=== PATIENT | female | born 1955 ===

== ENCOUNTER 2020-12-09 09:16 | Inpatient (IN) | payer OTHER ==
[2020-12-09] MEDS ORDERED: Aspirin Chewable 81 MG TAB ONE (09:27)
[2020-12-09] MEDS ORDERED: Enoxaparin Sodium 60 MG/0.6 ML SYRINGE ONE (09:27)
[2020-12-09] MEDS ORDERED: Aspirin 300 MG Suppository ONE (09:27)
[2020-12-09 09:42] LABS: Bilirubin Negative (Negative); Blood, Urine Negative (Negative); Clarity Clear (Clear); Glucose, Urine (Dipstick) Normal (Negative); Ketone, Urine Negative (Negative); Leukocyte Negative Leu/uL (Negative); Nitrite Negative (Negative); Protein, Urine (Dipstick) 20 mg/dL (Neg-Trace); Urobilinogen Normal mg/dL (Less than 2)
[2020-12-09 09:49] LABS: Medtox Reader # READER 4
[2020-12-09 09:50] LABS: Amphetamine Not Detected (NotDetected); Barbiturates Screen Not Detected (NotDetected); Benzodiazepine Screen Not Detected (NotDetected); Cocaine Metabolite Screen Not Detected (NotDetected); Medtox Control Line Valid? VALID (VALID); Methadone Not Detected (NotDetected); Methamphetamine Not Detected (NotDetected); Opiate Screen Not Detected (NotDetected); Oxycodone Screen Not Detected (NotDetected); Phencyclidine (PCP) Not Detected (NotDetected); THC/Cannabinoid Screen Not Detected (NotDetected); Tricyclic Screen Not Detected (NotDetected)
[2020-12-09 09:52] LABS: #Lymphocytes 0.4 thou/uL (1.20-3.40); #Monocytes 0.1 thou/uL (0.11-0.59); #Neutrophils 2.3 thou/uL (1.40-6.50); %Eosinophils 0.2 % (0.0-10.0); %Lymphocytes 15.4 % (21.0-51.0); %Monocytes 3.7 % (0.0-10.0); %Neutrophils 80.7 % (42.0-75.0); Hemoglobin 8.2 g/dL (12.0-16.0); Mean Corpuscular HGB CONC 34.7 g/dL (32.0-36.0); Mean Corpuscular Hemoglobin 32.5 pg (27.0-31.0); Mean Corpuscular Volume 93.4 fL (78.0-98.0); Mean Platelet Volume 6.7 fL (7.4-10.4); Platelet Count 135 thou/uL (130-400); RBC Distribution Width 12.2 % (11.5-14.5); Red Blood Cell (RBC) Count 2.52 mill/uL (4.20-5.40); White Blood Cell (WBC) Count 2.9 thou/uL (4.8-10.8)
--- NOTE | 2020-12-09 09:52 | RAD ---
PORTABLE CHEST 1 VIEW: Date: 12/09/2020 Time: 0935 hours HISTORY: Dyspnea. Lethargic. COVID-positive. FINDINGS/IMPRESSION: The heart size is borderline. The lungs are well expanded with patchy opacities in the peripheral karen g schwab bilaterally. No pneumothoraces or pleural effusions are seen. Findings are suspicious for pn eumonia. POS: MZA
[2020-12-09 09:54] LABS: Actual Bicarbonate (HCO3a) 22.8 mEq/L (22-28); Base Excess (BEa) -0.1 mEq/L (-2.0 to +3.0); CO2 Tension 32.2 mmHg (35.0-45.0); Calcium, Ionized (arterial) 1.12 mmol/L (1.12-1.30); Carboxyhemoglobin (COHb) 0.7 gm% (0.0-3.0); Hemoglobin (Hb) 14.4 g/dL (12.0-16.0); O2 Tension (PaO2), arterial 44.7 mmHg (> 80.0); Potassium - ABG Lab 2.62 mmol/L (3.70-5.30); pH, Arterial 7.47 (7.35-7.45)
[2020-12-09 09:55] LABS: Puncture Site RRA
[2020-12-09 10:11] LABS: Calc. Creatinine Clearance 0 mL/min (70-130)
[2020-12-09] MEDS ORDERED: cefTRIAXone\\ROCEPHIN 2 GM VIAL ONE (10:19)
[2020-12-09] MEDS ORDERED: Iopamidol-370 76% 500 ML 1 ML ONE (10:33)
--- NOTE | 2020-12-09 10:49 | CT ---
CT BRAIN WITHOUT CONTRAST: Date: HISTORY: COVID-19 positive. Altered mental status. COMPARISON: None. FINDINGS: There are changes of cortical atrophy and chronic small vessel ischemic disease. The ventricular size is appropriate and the basilar cisterns are patent. No evidence of acute infarct, hemorrhage, midline shift, or abnormal extra-axial fluid collections ar e seen. The visualized paranasal sinuses and mastoid air cells are well aerated. IMPRESSION: No CT evidence of acute intracranial process. POS: MZA
[2020-12-09 10:51] LABS: Calcium 7.9 mg/dL (7.8-10.44); Potassium 3.2 mmol/L (3.5-5.1)
--- NOTE | 2020-12-09 10:52 | CT ---
CT PULMONARY ANGIOGRAM WITH IV CONTRAST AND 3D POSTPROCESSING: Date: 12/09/2020 HISTORY: COVID-positive. Altered mental status. FINDINGS: There is good contrast opacification of the pulmonary arterial vasculature without filling defects to suggest pulmonary embolism. There are vascular calcifications without evidence of aneurysmal dilatat ion of the thoracic aorta. No pleural or pericardial effusions are seen. There is pneumomediastinum a nd pneumopericardium. There are extensive patchy ground-glass opacities in the lung schwab bilaterall y. Upper abdominal tomograms demonstrate no evidence of calcified gallstones. There are degenerative changes in the spine. No definite pneumothoraces are seen. IMPRESSION: 1. No CT evidence of pulmonary embolism. 2. Bilateral COVID-19 pneumonia. 3. Pneumomediastinum and pneumopericardium. Discussed over the telephone with ER physician, Dr. Mati Moreno, at 1017 hours. CODE CR. POS: MZA
[2020-12-09 10:59] LABS: Alcohol Less than 10 mg/dL (Less than 10); Salicylate Less than 8.0 mg/dL (15.0-30.0)
[2020-12-09] MEDS ORDERED: Azithromycin 500 MG VIAL ONE (11:07)
[2020-12-09] MEDS ORDERED: Dexamethasone 4 mg/ml Vial ONE (11:07)
[2020-12-09 11:14] LABS: CKMB 10.2 ng/mL (0-6.6)
[2020-12-09 11:18] LABS: Chloride 93 mmol/L (98-107); Sodium 127 mmol/L (136-145)
[2020-12-09 11:19] LABS: Carbon Dioxide 20 mmol/L (23-31)
[2020-12-09 11:20] LABS: Anion Gap 17 mmol/L (10-20)
[2020-12-09 11:21] LABS: Glucose 94 mg/dL (80-115)
[2020-12-09 11:22] LABS: Bilirubin, Total 0.5 mg/dL (0.2-1.2); Protein, Total 6.1 g/dL (5.8-8.1)
[2020-12-09 11:25] LABS: Globulin 3.1 g/dL (2.4-3.5)
[2020-12-09 11:26] LABS: Alkaline Phosphatase 82 U/L (40-110)
[2020-12-09 11:27] LABS: ALT (SGPT) 57 U/L (8-55); CK (CPK) 680 U/L (29-168); Lipase 50 U/L (8-78)
[2020-12-09 11:28] LABS: AST (SGOT) 100 U/L (5-34)
[2020-12-09] MEDS ORDERED: Potassium Chloride 20 MEQ TAB ONE (11:28)
[2020-12-09 11:29] LABS: BUN (Urea Nitrogen) 40 mg/dL (9.8-20.1)
[2020-12-09 11:41] LABS: SARS-CoV-2 NAA Rapid Test DETECTED (NotDetected)
[2020-12-09] MEDS ORDERED: Rocuronium Bromide 10 MG/ML (10ML VIAL) ONE (12:02)
[2020-12-09] MEDS ORDERED: Dexamethasone 10 MG/ML VIAL SLOW IVP SCH (12:30)
[2020-12-09] MEDS ORDERED: Fentanyl CADD 100 ML IV SCH ×2 (12:45→14:00)
[2020-12-09] MEDS ORDERED: Ventilator Sedation Protocol 1 EACH FS SCH (13:00)
[2020-12-09 13:20] LABS: Lactic Acid 1.5 mmol/L (0.5-2.2)
--- NOTE | 2020-12-09 13:34 | RAD ---
PORTABLE CHEST ONE VIEW: 12/09/20 at 12:35 p.m. HISTORY: Respiratory failure post central line placement. FINDINGS/IMPRESSION: Comparison made with the exam of 9:35 a.m. from same date. There has been interval placement of an endotracheal tube with hip in the right main bronchus. There is a nasogastric tube that can be traced into the stomach with tip exclusion from film. There is a le ft subclavian central venous catheter with tip in the projection of the cavoatrial junction. No pneu mothoraces are seen. the heart size is stable. Extensive bilateral infiltrates are seen. Discussed over the telephone with ER physician, Dr. Mati Moreno at 1:07 p.m. POS: KENDALL
[2020-12-09] MEDS ORDERED: Fentanyl BOLUS 250 ML IVPB PRN (14:00)
[2020-12-09] MEDS ORDERED: DISCONTINUE PREVIOUS NARCOTIC PAIN MEDICATIONS AND BENZODIAZEPINES FS SCH (14:00)
[2020-12-09] MEDS ORDERED: Propofol BOLUS 1,000 MG/100 ML VIAL IV PRN (14:00)
[2020-12-09] MEDS: Pantoprazole 40 MG VIAL IVP SCH ×2 (14:43→22:00)
[2020-12-09] MEDS ORDERED: Pantoprazole 40 MG VIAL ONE (14:44)
[2020-12-09] MEDS ORDERED: Albumin 25% 25 GM/100 ML BOT IVPB SCH (15:42)
[2020-12-09 15:44] LABS: Actual Bicarbonate (HCO3a) 24.5 mEq/L (22-28); Base Excess (BEa) -2.4 mEq/L (-2.0 to +3.0); CO2 Tension 50.4 mmHg (35.0-45.0); Calcium, Ionized (arterial) 1.09 mmol/L (1.12-1.30); Carboxyhemoglobin (COHb) 0.5 gm% (0.0-3.0); Hemoglobin (Hb) 13.6 g/dL (12.0-16.0); O2 Tension (PaO2), arterial 46.7 mmHg (> 80.0); Potassium - ABG Lab 3.45 mmol/L (3.70-5.30)
[2020-12-09 15:45] LABS: Peep/CPAP 7.5 cmH2O; Puncture Site RRA
[2020-12-09] MEDS ORDERED: Sodium Chloride 0.9% 500 ML IV SCH (15:45)
[2020-12-09] MEDS ORDERED: Norepinephrine 4 MG/4 ML VIAL ONE (15:47)
[2020-12-09] MEDS ORDERED: Cefepime 2 GM in Sodium Chloride 0.9% 100 ML IVPB SCH (16:00)
[2020-12-09] MEDS: Norepinephrine 8 MG/0.9% NS 250 ML IVPB PRN (16:05)
[2020-12-09 16:32] LABS: #Lymphocytes 0.8 thou/uL (1.20-3.40); #Monocytes 0.2 thou/uL (0.11-0.59); #Neutrophils 5.2 thou/uL (1.40-6.50); %Basophils 0.3 % (0.0-1.0); %Eosinophils 0.1 % (0.0-10.0); %Lymphocytes 13.4 % (21.0-51.0); %Monocytes 2.5 % (0.0-10.0); %Neutrophils 83.7 % (42.0-75.0); Hemoglobin 12.4 g/dL (12.0-16.0); Mean Corpuscular HGB CONC 33.4 g/dL (32.0-36.0); Mean Corpuscular Hemoglobin 30.1 pg (27.0-31.0); Mean Corpuscular Volume 90.1 fL (78.0-98.0); Platelet Count 221 thou/uL (130-400); RBC Distribution Width 12.2 % (11.5-14.5); Red Blood Cell (RBC) Count 4.12 mill/uL (4.20-5.40); White Blood Cell (WBC) Count 6.2 thou/uL (4.8-10.8)
[2020-12-09 16:51] LABS: Troponin I 1.216 ng/mL (< 0.028)
[2020-12-09] MEDS ORDERED: Aspirin 300 MG Suppository PR SCH (17:15)
[2020-12-09] MEDS ORDERED: Vecuronium Bromide 20 MG VIAL IV PRN (17:41)
[2020-12-09] MEDS ORDERED: Propofol 1,000 MG/100 ML VIAL IV ONE (17:54)
[2020-12-09] MEDS: Propofol 1,000 MG/100 ML VIAL IV PRN (18:07)
--- NOTE | 2020-12-09 18:27 | CON ---
DATE OF CONSULTATION: 12/09/2020 SUBJECTIVE: Ms. Lowry is a 65-year-old female, who presented with respiratory distress. CT showed diffuse anterior to posterior alveolar and interstitial infiltrates. She had one small posterior area spared in her left mid-lung field. Intubation is subsequently recommended by me after I evaluated her talking to the emergency physician. OBJECTIVE: VITAL SIGNS: Blood pressure 119/90, heart rate 64, FiO2 is at 100%. Once she arrives in the critical care unit, she will be prone ventilated. LUNGS: Remarkable for equal breath sounds. HEART: Regular rhythm. ABDOMEN: Soft. LABORATORY DATA: Chest CT surprisingly showed pneumomediastinum and pneumopericardium. White count 6.2, hemoglobin 12.4, platelets 221. Sodium 127, potassium 3.2, chloride 93, bicarb 20, BUN 40, creatinine 1.19. IMPRESSION: COVID pneumonia with respiratory failure. I suspect she has been symptomatic for quite some time, but she does not speak [place]ic. She will be admitted to the critical care unit prone ventilated. Critical care time 30 min. Job ID: [id number] MTDD
--- NOTE | 2020-12-09 18:28 | HP ---
CHIEF COMPLAINT: Shortness of breath. HISTORY OF PRESENT ILLNESS: The patient is a 65-year-old female with history of hypertension, who comes into the hospital with worsening shortness of breath. Per the patient's son, who I called, he stated that the patient was having significant shortness of breath today and was brought into the hospital. He states that for the past six or seven days, she has been having some body aches and pains, some lower back pain, however, no shortness of breath. Per the EMS records, it notes that EMS was notified since the patient was noted to have change in mental status and possibly syncope and unresponsiveness at the hotel. At this time, the patient was noted to have saturations in the 70s to 80s and was put on non-rebreather. Her blood pressure also was low. At this time, she was started on some fluids. PAST MEDICAL HISTORY: She has a history of hypertension per family. PAST SURGICAL HISTORY: She has had a knee surgery and hemorrhoid surgeries. SOCIAL HISTORY: No alcohol use, drug use, or smoking history. FAMILY HISTORY: Family history of heart disease, hypertension, and diabetes. ALLERGIES: SHE HAS NO KNOWN DRUG ALLERGIES. REVIEW OF SYSTEMS: All negative except for the ones mentioned above in the HPI. PHYSICAL EXAMINATION: VITAL SIGNS: Temperature 98.6. She was initially on high-flow at 82% oxygen. Respirations were 25 to 30, blood pressure was 90/60, pulse was around 100. GENERAL: She is awake, appears very tachypneic. Is coughing, unable to speak sentences. CV: S1 and S2 present. No murmurs, rubs, or gallops. LUNGS: She has some crackles to bilateral lower lung bases. ABDOMEN: Soft and nontender. Bowel sounds are present x2. EXTREMITIES: No edema. Pedal pulses are present x2. NEUROVASCULAR: No focal deficits noted. SKIN: No cuts, lesions, or bruises noted. LABORATORY RESULTS: As of the following: Her hematology; WBCs of 2.9, hemoglobin of 8.2, hematocrit of 23.5, and platelets of 135. Her blood gas indicated a pO2 of 44.7, pH of 7.47 with a pCO2 of 32.2. Chemistry; sodium of 127, potassium of 3.2, BUN of 40, creatinine of 1.19. Her AST is 100 and ALT is 57. Her troponin was 0.5. CK was 680. Ammonia level was 2. Tthe patient's CRP was 11. She did have a CTA, which indicated significant COVID infiltrates bilaterally. No PE was noted. She also had pneumomediastinum and pneumopericardium. ASSESSMENT AND PLAN: The patient is a 65-year-old female, who presents to the hospital with complaints of shortness of breath and was found to have syncope. 1. Acute hypoxic respiratory failure, most likely secondary to COVID. The patient at my evaluation was noted to be very tachypneic on high-flow. At this time, I decided to intubate this patient. Pulmonology has been consulted. We will go ahead and intubate the patient. 2. Sepsis, most likely secondary to COVID. We will start her on some antibiotics, some steroids. 3. COVID pneumonia. We will start her on Decadron, and we will also start her colchicine. We will put her on Lovenox. We will put her on some inhaled steroids. It appears that she had a COVID test done yesterday. However, her symptoms have been going on for the past 6 to 7 days. She is currently not a candidate for remdesivir, possibly convalescent plasma, however, no remdesivir. 4. [id number] myocardial infarction. I think this is most likely demand related from the straining. We will continue to monitor. No significant EKG changes and we will monitor. 5. Acute kidney injury. We will continue some IV hydration. 6. Hyponatremia and hypokalemia. We will replace. 7. Mildly elevated LFTs. Again, we will continue to monitor. This could be from underlying COVID. 8. Deep venous thrombosis prophylaxis I have already put the patient on Lovenox. Job ID: [id number]
[2020-12-09] MEDS ORDERED: Bacteriostatic Normal Saline 30 ML VIAL ONE (20:08)
[2020-12-09] MEDS: Vecuronium 10 MG VIAL IV PRN (20:14)
[2020-12-09 20:22] LABS: Critical Call Chem Troponin I RESULT DECREASING; Troponin I 1.194 ng/mL (< 0.028)
[2020-12-09] MEDS: Mometasone 200 MCG/Formoterol 5 MCG 120 PUFF INHALER INH SCH (20:28)
[2020-12-09] MEDS ORDERED: Enoxaparin Sodium 60 MG/0.6 ML SYRINGE SC SCH (21:00)
[2020-12-09] MEDS ORDERED: Enoxaparin Sodium 40 MG/0.4 ML SYRINGE SC SCH (21:00)
[2020-12-09] MEDS: Atorvastatin Calcium 40 MG TAB PO SCH (22:00)
[2020-12-09] MEDS: Enoxaparin Sodium 60 MG/0.6 ML SYRINGE SC SCH (22:00)
[2020-12-09] MEDS: Cefepime 2 GM in Sodium Chloride 0.9% 100 ML IVPB SCH (22:08)
[2020-12-09 23:47] LABS: Troponin I 1.773 ng/mL (< 0.028)
[2020-12-09] MEDS: Colchicine 0.6 MG TAB PO SCH (23:49)
--- NOTE | 2020-12-10 00:38 | PDOC.BPN ---
- Brief Progress Note Encounter Date: 12/10/20 trop worsneing but on meds already , follow cardiology consult , low BP limiting addition of beta blockers noted
[2020-12-10 03:59] LABS: Band 13 % (5-11); Hemoglobin 11.9 g/dL (12.0-16.0); Lymphocytes 9 % (21-51); MDiff Complete? YES; Mean Corpuscular HGB CONC 33.7 g/dL (32.0-36.0); Mean Corpuscular Hemoglobin 30.4 pg (27.0-31.0); Mean Corpuscular Volume 90.3 fL (78.0-98.0); Mean Platelet Volume 7.2 fL (7.4-10.4); Monocytes 4 % (0-10); Neutrophil 74 % (42-75); Platelet Count 237 thou/uL (130-400); Platelet Morphology Comment Appears Adequate; RBC Distribution Width 12.3 % (11.5-14.5); Red Blood Cell (RBC) Count 3.91 mill/uL (4.20-5.40); White Blood Cell (WBC) Count 7.2 thou/uL (4.8-10.8)
[2020-12-10 04:02] LABS: Anion Gap 16 mmol/L (10-20); BUN (Urea Nitrogen) 22 mg/dL (9.8-20.1); Calc. Creatinine Clearance 72 mL/min (70-130); Calcium 8.1 mg/dL (7.8-10.44); Carbon Dioxide 21 mmol/L (23-31); Chloride 106 mmol/L (98-107); Glucose 159 mg/dL (80-115); Sodium 140 mmol/L (136-145)
[2020-12-10 04:05] LABS: Potassium 2.8 mmol/L (3.5-5.1)
[2020-12-10] MEDS: Potassium Chloride 10 MEQ in Premix Bag 1 BAG IVPB SCH ×4 (04:45→08:48)
[2020-12-10] MEDS: Propofol 1,000 MG/100 ML VIAL IV PRN ×2 (06:42→17:43)
[2020-12-10 07:25] LABS: Actual Bicarbonate (HCO3a) 23.4 mEq/L (22-28); Base Excess (BEa) 1.6 mEq/L (-2.0 to +3.0); CO2 Tension 29.6 mmHg (35.0-45.0); Calcium, Ionized (arterial) 1.09 mmol/L (1.12-1.30); Carboxyhemoglobin (COHb) 0.3 gm% (0.0-3.0); Hemoglobin (Hb) 16.2 g/dL (12.0-16.0); O2 Tension (PaO2), arterial 60.8 mmHg (> 80.0); pH, Arterial 7.52 (7.35-7.45)
[2020-12-10 07:31] LABS: Puncture Site LRA
[2020-12-10] MEDS: Mometasone 200 MCG/Formoterol 5 MCG 120 PUFF INHALER INH SCH ×2 (07:35→18:37)
[2020-12-10] MEDS: Enoxaparin Sodium 60 MG/0.6 ML SYRINGE SC SCH ×2 (08:45→21:30)
[2020-12-10] MEDS: Pantoprazole 40 MG VIAL IVP SCH ×2 (08:46→22:04)
[2020-12-10] MEDS: Dexamethasone 4 mg/ml Vial SLOW IVP SCH (08:46)
[2020-12-10] MEDS: Cefepime 2 GM in Sodium Chloride 0.9% 100 ML IVPB SCH ×2 (08:47→22:03)
[2020-12-10] MEDS: Norepinephrine 8 MG/0.9% NS 250 ML IVPB PRN (08:57)
[2020-12-10] MEDS ORDERED: Aspirin 300 MG Suppository PR SCH (09:00)
[2020-12-10] MEDS: Vecuronium 10 MG VIAL IV PRN ×2 (10:21→17:48)
[2020-12-10] MEDS: Lorazepam 2 MG/ML VIAL SLOW IVP PRN (10:21)
[2020-12-10] MEDS: Colchicine 0.6 MG TAB PO SCH ×2 (10:21→22:48)
--- NOTE | 2020-12-10 15:43 | PRG ---
DATE OF SERVICE: 12/10/2020 SUBJECTIVE: Ms. Lowry remains mechanically ventilated. She is in prone position. OBJECTIVE: VITAL SIGNS: Heart rate 66, blood pressure 106/75, FiO2 has successfully been turned down overnight. LUNGS: Remarkable for equal breath sounds. HEART: Regular rhythm. ABDOMEN: Soft. LABORATORY DATA: White count 7.2, hemoglobin 11.9, platelets 237. Sodium 140, potassium 2.8, chloride 106, bicarb 21, BUN 22, and creatinine 0.7. IMPRESSION: Respiratory failure associated with COVID. PLAN: Continue support. Critical care time 30 min. Job ID: [id number] MTDD
[2020-12-10] MEDS: Atorvastatin Calcium 40 MG TAB PO SCH (22:05)
[2020-12-11] MEDS: Propofol 1,000 MG/100 ML VIAL IV PRN ×2 (04:11→16:08)
--- NOTE | 2020-12-11 07:57 | PRG ---
DATE OF SERVICE: 12/11/2020 SUBJECTIVE: Ms. Lowry remains prone ventilated. OBJECTIVE: VITAL SIGNS: Heart rate 65, blood pressure 152/87, and oximetry is 100%. LUNGS: Remarkable for equal breath sounds. HEART: Regular rhythm. ABDOMEN: Soft. LABORATORY DATA: White count 7.2, hemoglobin 11.9, platelets 237 that was yesterday, there is no lab today. IMPRESSION: COVID pneumonia, respiratory failure. She will be placed in the supine position today. Critical care time 30 min. Job ID: [id number] MTDD
[2020-12-11] MEDS: Mometasone 200 MCG/Formoterol 5 MCG 120 PUFF INHALER INH SCH ×2 (08:03→19:07)
--- NOTE | 2020-12-11 08:16 | RAD ---
EXAM: Single view of the chest HISTORY: Covid pneumonia COMPARISON: 12/09/2020 FINDINGS: Single view of the chest shows a normal sized cardiomediastinal silhouette. The lines and tubes are unchanged in position. Scattered stable multifocal infiltrates are seen in the lungs. No acute osseous abnormality. IMPRESSION: Stable exam
[2020-12-11] MEDS: Enoxaparin Sodium 60 MG/0.6 ML SYRINGE SC SCH ×2 (09:49→20:50)
[2020-12-11] MEDS: Colchicine 0.6 MG TAB PO SCH ×2 (09:49→20:50)
[2020-12-11] MEDS: Lorazepam 2 MG/ML VIAL SLOW IVP PRN ×4 (09:50→16:08)
[2020-12-11] MEDS: Dexamethasone 4 mg/ml Vial SLOW IVP SCH (09:56)
[2020-12-11] MEDS: Pantoprazole 40 MG VIAL IVP SCH ×2 (09:56→20:50)
[2020-12-11 11:22] LABS: Mean Corpuscular HGB CONC 34.2 g/dL (32.0-36.0); Mean Corpuscular Volume 90.8 fL (78.0-98.0); Mean Platelet Volume 6.9 fL (7.4-10.4); Platelet Count 254 thou/uL (130-400); RBC Distribution Width 12.4 % (11.5-14.5); Red Blood Cell (RBC) Count 3.87 mill/uL (4.20-5.40); White Blood Cell (WBC) Count 9.3 thou/uL (4.8-10.8)
[2020-12-11 11:43] LABS: Anion Gap 15 mmol/L (10-20); BUN (Urea Nitrogen) 17 mg/dL (9.8-20.1); Band 1 % (5-11); Calc. Creatinine Clearance 85 mL/min (70-130); Calcium 8.1 mg/dL (7.8-10.44); Carbon Dioxide 24 mmol/L (23-31); Chloride 101 mmol/L (98-107); Glucose 95 mg/dL (80-115); Lymphocytes 20 % (21-51); MDiff Complete? YES; Metamyelocyte 1 % (0-0); Monocytes 2 % (0-10); Neutrophil 73 % (42-75); Nucleated RBC 1 % (0); Platelet Morphology Comment Appears Adequate; Polychromasia SLIGHT = 2-3 cells (100X) (0-2/hpf); Reactive Lymphocytes 3 % (0-10); Sodium 137 mmol/L (136-145)
[2020-12-11] MEDS: Vecuronium 10 MG VIAL IV PRN ×3 (12:19→16:08)
[2020-12-11] MEDS: Cefepime 2 GM in Sodium Chloride 0.9% 100 ML IVPB SCH ×2 (12:19→23:15)
[2020-12-11] MEDS ORDERED: Sodium Chloride 0.9% (PF) 10 ML VIAL FS PRN (13:45)
[2020-12-11] MEDS ORDERED: Electrolyte Replacement Protocol 1 EACH FS ONE (15:55)
[2020-12-11] MEDS ORDERED: Electrolyte Replacement Protocol FS PRN (16:15)
[2020-12-11] MEDS ORDERED: Potassium Chloride 40 MEQ in Sodium Chloride 0.9% 250 ML 250 ML IVPB SCH (18:00)
--- NOTE | 2020-12-11 18:46 | PDOC.HOSPP ---
- Subjective Encounter Date: 12/11/20 Encounter Time: 18:15 Subjective: f/u for COVID PNA/Resp failure on mech ventilation. Nursing reported blood in NGT earlier this am now clearing after switching to LIWS from high-suction. - Objective Vital Signs & Weight: Vital Signs (12 hours) Pulse Resp BP Pulse Ox 12/11/20 18:00 14 12/11/20 16:00 14 12/11/20 14:48 66 120/79 12/11/20 14:00 14 12/11/20 11:27 64 12/11/20 10:00 14 12/11/20 08:04 66 140/87 12/11/20 08:00 100 Weight Admit Weight 132 lb Weight 132 lb 4.438 oz Most Recent Monitor Data Heart Rate from ECG 64 NIBP 101/68 NIBP BP-Mean 79 Respiration from ECG 14 SpO2 100 I&O: 12/10/20 12/11/20 12/12/20 06:59 06:59 06:59 Intake Total 280.8 184 254 Output Total 3475 1510 1400 Balance -3194.2 -1326 -1146 Result Diagrams: 12/11/20 10:00 12/11/20 10:00 Additional Labs: Microbiology 12/09/20 09:29 Urine Straight Catheter Urine Culture - Final NO GROWTH AT 48 HOURS 12/09/20 09:35 Venous blood - Left Arm Blood Culture - Preliminary NO GROWTH AT 48 HOURS 12/09/20 09:20 Venous blood - Left Arm Blood Culture - Preliminary NO GROWTH AT 48 HOURS Laboratory Tests 12/09/20 12/09/20 12/09/20 09:30 09:30 09:30 D-Dimer 0.49 H Potassium 3.2 L Ferritin Troponin I C-Reactive Protein B-Natriuretic Peptide 179.3 H TSH 3rd Generation Influenza A RNA INAAT Influenza B RNA INAAT SARS-CoV-2 Rap RNA(RT-PCR) 12/09/20 12/09/20 12/09/20 10:30 10:30 10:30 D-Dimer Potassium Ferritin 3661.63 H Troponin I C-Reactive Protein 11.16 H B-Natriuretic Peptide TSH 3rd Generation 0.2038 L Influenza A RNA INAAT Influenza B RNA INAAT SARS-CoV-2 Rap RNA(RT-PCR) 02/06/21 02/06/21 02/06/21 10:31 10:32 16:01 D-Dimer Potassium Ferritin Troponin I 0.515 H* 1.216 H* C-Reactive Protein B-Natriuretic Peptide TSH 3rd Generation Influenza A RNA INAAT Not Detected Influenza B RNA INAAT Not Detected SARS-CoV-2 Rap RNA(RT-PCR) DETECTED A* 12/09/20 12/09/20 12/10/20 19:36 23:03 03:00 D-Dimer Potassium 2.8 L* Ferritin Troponin I 1.194 H* 1.773 H* C-Reactive Protein B-Natriuretic Peptide TSH 3rd Generation Influenza A RNA INAAT Influenza B RNA INAAT SARS-CoV-2 Rap RNA(RT-PCR) Radiology Reviewed by me: Yes (PCXR - bilat infiltrates, lines/tubes in place) EKG Reviewed by me: Yes (Tele - SR) Hospitalist ROS - Medication Medications: Active Medications Generic Name Dose Route Start Last Admin Trade Name Freq PRN Reason Stop Dose Admin Atorvastatin Calcium 40 mg 12/09/20 21:00 12/10/20 22:05 Atorvastatin Calcium 40 Mg Tab PO 40 mg HS GLO Administration Colchicine 0.6 mg 12/09/20 21:00 12/11/20 09:49 Colchicine 0.6 Mg Tab PO 0.6 mg BID GLO Administration Dexamethasone 6 mg 12/10/20 09:00 12/11/20 09:56 Dexamethasone 4 Mg/Ml Vial SLOW IVP 6 mg DAILY GLO Administration Enoxaparin Sodium 60 mg 12/09/20 21:00 12/11/20 09:49 Enoxaparin Sodium 60 Mg/0.6 Ml Syringe SC 60 mg 0900,2100 GLO Administration Norepinephrine Bitartrate 250 mls @ 0 mls/hr 12/09/20 12:51 12/10/20 08:57 Levophed IVPB 250 mls PRN PRN Administration To maintain MAP > 65 Protocol Titrate Cefepime HCl 2 gm/ Sodium 100 mls @ 200 mls/hr 12/09/20 22:00 12/11/20 12:19 Chloride IVPB 100 mls 1000,2200 GLO Administration Potassium Chloride 40 meq/ 270 mls @ 135 mls/hr 12/11/20 18:00 12/11/20 18:36 Sodium Chloride IVPB 12/11/20 19:59 270 mls NOW GLO Administration Lorazepam 2 mg 12/09/20 14:00 12/11/20 16:08 Lorazepam 2 Mg/Ml Vial SLOW IVP 01/08/21 14:00 2 mg Q1H PRN Administration Breakthrough agitation Mometasone Furoate/Formoterol Fumar 2 puff 12/09/20 18:30 12/11/20 08:03 Mometasone 200 Mcg/Formoterol 5 Mcg 120 Puff Inhaler INH 2 puff BID-RT GLO Administration Pantoprazole Sodium 40 mg 12/09/20 14:00 12/11/20 09:56 Pantoprazole 40 Mg Vial IVP 40 mg BID GLO Administration Propofol 1,000 mg 12/09/20 14:00 12/11/20 16:08 Propofol 1,000 Mg/100 Ml Vial IV 01/08/21 14:00 1,000 mg INF PRN Administration TO ACHIEVE GOAL RASS Protocol Vecuronium [place] 10 mg 12/09/20 20:15 12/11/20 16:08 Vecuronium 10 Mg Vial IV 10 mg Q1H PRN Administration Agitation Hospitalist Exam Vitals: Vital Signs (12 hours) Pulse Resp BP Pulse Ox 12/11/20 18:00 14 12/11/20 16:00 14 12/11/20 14:48 66 120/79 12/11/20 14:00 14 12/11/20 11:27 64 12/11/20 10:00 14 12/11/20 08:04 66 140/87 12/11/20 08:00 100 Weight Admit Weight 132 lb Weight 132 lb 4.438 oz Most Recent Monitor Data Heart Rate from ECG 64 NIBP 101/68 NIBP BP-Mean 79 Respiration from ECG 14 SpO2 100 General - other findings: sedate on mech vent Eye: anicteric sclera ENT: normocephalic atraumatic, no oropharyngeal lesions Neck: supple, symmetric, no JVD, no thyromegaly, no lymphadenopathy Heart: RRR, no gallops, no rubs, normal peripheral pulses Heart - other findings: S1, S2 Respiratory - other findings: diminished in bases Gastrointestinal: soft, non-tender, non-distended, normal bowel sounds, no palpable masses, no hepatomegaly Extremities: no cyanosis, no clubbing, no edema Skin: normal turgor Neurological - other findings: sedate, unresponsive Psychiatric: somnolent, lethargic Hosp A/P (1) Pneumonia due to COVID-19 virus Code(s): U07.1 - COVID-19; J12.82 - PNEUMONIA DUE TO CORONAVIRUS DISEASE 2019 Status: Acute Plan: Continue Cefepime/Dexamethasone/Lovenox/Colchicine (2) Acute respiratory failure with hypoxia Code(s): J96.01 - ACUTE RESPIRATORY FAILURE WITH HYPOXIA Status: Acute Plan: Continue mech ventilation with SIMV (3) Hypokalemia Code(s): E87.6 - HYPOKALEMIA Status: Acute Plan: KCL supplementation, serial K+ monitoring (4) NSTEMI (non-ST elevated myocardial infarction) Code(s): I21.4 - NON-ST ELEVATION (NSTEMI) MYOCARDIAL INFARCTION Status: Acute Plan: Medical mgmt, likely demand state given #1 (5) SYLVAIN (acute kidney injury) Code(s): N17.9 - ACUTE KIDNEY FAILURE, UNSPECIFIED Status: Acute Plan: Resolving, avoid nephrotoxic meds and limit contrast exposure - Plan sidhu catheter, continue antibiotics, group social worker, respiratory therapy, DVT proph w/SCDs Continue critical support Continue pulm support with mech ventilation Continue Cefepime/Dexamethasone/Colchicine/Lovenox KCL replacement AM lab: BMP, CBC, CRP, Ferritin PCXR in am
[2020-12-11] MEDS: Atorvastatin Calcium 40 MG TAB PO SCH (20:50)
[2020-12-12] MEDS: Propofol 1,000 MG/100 ML VIAL IV PRN ×3 (02:52→23:52)
[2020-12-12 04:28] LABS: Anion Gap 16 mmol/L (10-20); BUN (Urea Nitrogen) 17 mg/dL (9.8-20.1); Calc. Creatinine Clearance 86 mL/min (70-130); Calcium 7.9 mg/dL (7.8-10.44); Carbon Dioxide 20 mmol/L (23-31); Chloride 105 mmol/L (98-107); Glucose 116 mg/dL (80-115); Potassium 3.8 mmol/L (3.5-5.1); Sodium 137 mmol/L (136-145)
[2020-12-12 04:34] LABS: Hemoglobin 12.1 g/dL (12.0-16.0); Lymphocytes 21 % (21-51); MDiff Complete? YES; Mean Corpuscular HGB CONC 34.7 g/dL (32.0-36.0); Mean Corpuscular Hemoglobin 31.5 pg (27.0-31.0); Mean Corpuscular Volume 90.8 fL (78.0-98.0); Mean Platelet Volume 7.4 fL (7.4-10.4); Metamyelocyte 1 % (0-0); Monocytes 7 % (0-10); Neutrophil 71 % (42-75); Nucleated RBC 1 % (0); Platelet Count 247 thou/uL (130-400); Platelet Morphology Comment Appears Adequate; RBC Distribution Width 12.5 % (11.5-14.5); Red Blood Cell (RBC) Count 3.84 mill/uL (4.20-5.40); White Blood Cell (WBC) Count 7.6 thou/uL (4.8-10.8)
[2020-12-12] MEDS: Mometasone 200 MCG/Formoterol 5 MCG 120 PUFF INHALER INH SCH ×2 (07:11→18:32)
--- NOTE | 2020-12-12 08:09 | RAD ---
EXAM: Single view of the chest HISTORY: Ventilated patient with respiratory failure COMPARISON: 12/11/2020 FINDINGS: Single view of the chest shows a normal sized cardiomediastinal silhouette. The lines and tubes are unchanged in position. Scattered multifocal mixed infiltrates are seen. These may be slightly improved. No acute osseous abnormality. IMPRESSION: Slight improvement in multifocal infiltrates.
[2020-12-12] MEDS: Cefepime 2 GM in Sodium Chloride 0.9% 100 ML IVPB SCH ×2 (09:03→21:40)
[2020-12-12] MEDS: Enoxaparin Sodium 60 MG/0.6 ML SYRINGE SC SCH ×2 (09:03→20:28)
[2020-12-12] MEDS: Dexamethasone 4 mg/ml Vial SLOW IVP SCH (09:03)
[2020-12-12] MEDS: Colchicine 0.6 MG TAB PO SCH ×2 (09:04→20:29)
[2020-12-12] MEDS: Pantoprazole 40 MG VIAL IVP SCH ×2 (09:04→20:28)
[2020-12-12] MEDS: Lorazepam 2 MG/ML VIAL SLOW IVP PRN (13:53)
[2020-12-12] MEDS: Vecuronium 10 MG VIAL IV PRN (13:53)
--- NOTE | 2020-12-12 15:09 | PRG ---
DATE OF SERVICE: 12/12/2020 SUBJECTIVE: Ms. Lowry remains mechanically ventilated. OBJECTIVE: VITAL SIGNS: Heart rates in the 50s, blood pressure 120/79, FiO2 is down to 40, respiratory rates in the teens. LUNGS: Remarkable for coarse equal breath sounds. HEART: Regular rhythm. ABDOMEN: Soft. EXTREMITIES: Without edema. LABORATORY DATA: White count 7.6, hemoglobin 12.1, platelets 247. Sodium 137, potassium 3.8, chloride 105, bicarb 20, BUN 17, creatinine 0.6. IMPRESSION: COVID pneumonia, respiratory failure, pneumomediastinum. Surprisingly, her chest x-ray looks a little bit better. We will continue supportive care. Critical care time 30 min. Job ID: [id number] MTDD
--- NOTE | 2020-12-12 17:33 | PDOC.HOSPP ---
- Subjective Encounter Date: 12/12/20 Encounter Time: 17:20 Subjective: f/u for COVID PNA/resp failure/mech ventilation. Receiving Cefepime/Dexamethasone/Colchicine/Lovenox - Objective Vital Signs & Weight: Vital Signs (12 hours) Pulse Pulse Pulse Resp BP BP BP 12/12/20 16:00 14 12/12/20 14:48 59 L 120/79 12/12/20 14:00 14 12/12/20 12:00 14 12/12/20 11:30 57 L 54 L 113/79 142/92 H 12/12/20 10:36 61 114/73 12/12/20 10:00 14 12/12/20 08:00 14 12/12/20 07:11 69 14 12/12/20 07:03 62 128/93 H 12/12/20 06:00 14 Pulse Ox Pulse Ox Pulse Ox 12/12/20 16:00 12/12/20 14:48 12/12/20 14:00 12/12/20 12:00 12/12/20 11:30 100 100 12/12/20 10:36 12/12/20 10:00 12/12/20 08:00 99 12/12/20 07:11 100 12/12/20 07:03 12/12/20 06:00 Weight Admit Weight 132 lb Weight 127 lb 13.89 oz Most Recent Monitor Data Heart Rate from ECG 54 NIBP 135/85 NIBP BP-Mean 101 Respiration from ECG 14 SpO2 98 I&O: 12/11/20 12/12/20 12/13/20 06:59 06:59 06:59 Intake Total 184 639 330 Output Total 1510 2030 343 Balance -1326 -1391 -13 Result Diagrams: 12/12/20 03:50 12/12/20 03:50 Additional Labs: Microbiology 12/09/20 09:29 Urine Straight Catheter Urine Culture - Final NO GROWTH AT 48 HOURS 12/09/20 09:35 Venous blood - Left Arm Blood Culture - Preliminary NO GROWTH AT 48 HOURS 12/09/20 09:20 Venous blood - Left Arm Blood Culture - Preliminary NO GROWTH AT 48 HOURS Laboratory Tests 12/09/20 12/09/20 12/09/20 09:30 09:30 09:30 D-Dimer 0.49 H Potassium 3.2 L Ferritin Troponin I C-Reactive Protein B-Natriuretic Peptide 179.3 H TSH 3rd Generation Influenza A RNA INAAT Influenza B RNA INAAT SARS-CoV-2 Rap RNA(RT-PCR) 12/09/20 12/09/20 12/09/20 10:30 10:30 10:30 D-Dimer Potassium Ferritin 3661.63 H Troponin I C-Reactive Protein 11.16 H B-Natriuretic Peptide TSH 3rd Generation 0.2038 L Influenza A RNA INAAT Influenza B RNA INAAT SARS-CoV-2 Rap RNA(RT-PCR) 12/09/20 12/09/20 12/09/20 10:31 10:32 16:01 D-Dimer Potassium Ferritin Troponin I 0.515 H* 1.216 H* C-Reactive Protein B-Natriuretic Peptide TSH 3rd Generation Influenza A RNA INAAT Not Detected Influenza B RNA INAAT Not Detected SARS-CoV-2 Rap RNA(RT-PCR) DETECTED A* 12/09/20 12/09/20 12/10/20 19:36 23:03 03:00 D-Dimer Potassium 2.8 L* Ferritin Troponin I 1.194 H* 1.773 H* C-Reactive Protein B-Natriuretic Peptide TSH 3rd Generation Influenza A RNA INAAT Influenza B RNA INAAT SARS-CoV-2 Rap RNA(RT-PCR) Radiology Reviewed by me: Yes (PCXR - multifocal infiltrates, lines/tubes in place) EKG Reviewed by me: Yes (Tele - SR) Hospitalist ROS - Medication Medications: Active Medications Generic Name Dose Route Start Last Admin Trade Name Freq PRN Reason Stop Dose Admin Atorvastatin Calcium 40 mg 12/09/20 21:00 12/11/20 20:50 Atorvastatin Calcium 40 Mg Tab PO 40 mg HS GLO Administration Colchicine 0.6 mg 12/09/20 21:00 12/12/20 09:04 Colchicine 0.6 Mg Tab PO 0.6 mg BID GLO Administration Dexamethasone 6 mg 12/10/20 09:00 12/12/20 09:03 Dexamethasone 4 Mg/Ml Vial SLOW IVP 6 mg DAILY GLO Administration Enoxaparin Sodium 60 mg 12/09/20 21:00 12/12/20 09:03 Enoxaparin Sodium 60 Mg/0.6 Ml Syringe SC 60 mg 0900,2100 GLO Administration Norepinephrine Bitartrate 250 mls @ 0 mls/hr 12/09/20 12:51 12/10/20 08:57 Levophed IVPB 250 mls PRN PRN Administration To maintain MAP > 65 Protocol Titrate Cefepime HCl 2 gm/ Sodium 100 mls @ 200 mls/hr 12/09/20 22:00 12/12/20 09:03 Chloride IVPB 100 mls 1000,2200 GLO Administration Lorazepam 2 mg 12/09/20 14:00 12/12/20 13:53 Lorazepam 2 Mg/Ml Vial SLOW IVP 01/08/21 14:00 2 mg Q1H PRN Administration Breakthrough agitation Mometasone Furoate/Formoterol Fumar 2 puff 12/09/20 18:30 12/12/20 07:11 Mometasone 200 Mcg/Formoterol 5 Mcg 120 Puff Inhaler INH 2 puff BID-RT GLO Administration Pantoprazole Sodium 40 mg 12/09/20 14:00 12/12/20 09:04 Pantoprazole 40 Mg Vial IVP 40 mg BID GLO Administration Propofol 1,000 mg 12/09/20 14:00 12/12/20 12:00 Propofol 1,000 Mg/100 Ml Vial IV 01/08/21 14:00 1,000 mg INF PRN Administration TO ACHIEVE GOAL RASS Protocol Sodium Chloride 10 ml 12/11/20 21:00 12/12/20 09:05 Flush - Normal Saline 10 Ml Syringe IVF 10 ml Q12HR GLO Administration Vecuronium [place] 10 mg 12/09/20 20:15 12/12/20 13:53 Vecuronium 10 Mg Vial IV 10 mg Q1H PRN Administration Agitation Hospitalist Exam Vitals: Vital Signs (12 hours) Pulse Pulse Pulse Resp BP BP BP 12/12/20 16:00 14 12/12/20 14:48 59 L 120/79 12/12/20 14:00 14 12/12/20 12:00 14 12/12/20 11:30 57 L 54 L 113/79 142/92 H 12/12/20 10:36 61 114/73 12/12/20 10:00 14 12/12/20 08:00 14 12/12/20 07:11 69 14 12/12/20 07:03 62 128/93 H 12/12/20 06:00 14 Pulse Ox Pulse Ox Pulse Ox 12/12/20 16:00 12/12/20 14:48 12/12/20 14:00 12/12/20 12:00 12/12/20 11:30 100 100 12/12/20 10:36 12/12/20 10:00 12/12/20 08:00 99 12/12/20 07:11 100 12/12/20 07:03 12/12/20 06:00 Weight Admit Weight 132 lb Weight 127 lb 13.89 oz Most Recent Monitor Data Heart Rate from ECG 54 NIBP 135/85 NIBP BP-Mean 101 Respiration from ECG 14 SpO2 98 General - other findings: sedate on mech vent Eye: anicteric sclera ENT: normocephalic atraumatic, no oropharyngeal lesions ENT - other findings: ETT in place Neck: supple, symmetric, no JVD, no thyromegaly, no lymphadenopathy Heart: RRR, no gallops, no rubs, normal peripheral pulses Heart - other findings: S1, S2 Respiratory: tachypneic Respiratory - other findings: diminished in bases, coarse sounds Gastrointestinal: soft, non-tender, non-distended, normal bowel sounds, no palpable masses, no hepatomegaly Extremities: no cyanosis, no clubbing, no edema Skin: normal turgor, no lesions Neurological - other findings: sedate on mech vent Psychiatric: somnolent, lethargic Hosp A/P (1) Pneumonia due to COVID-19 virus Code(s): U07.1 - COVID-19; J12.82 - PNEUMONIA DUE TO CORONAVIRUS DISEASE 2019 Status: Acute Plan: Continue Cefepime/Dexamethasone/Colchicine/Lovenox/mech vent (2) Acute respiratory failure with hypoxia Code(s): J96.01 - ACUTE RESPIRATORY FAILURE WITH HYPOXIA Status: Acute Plan: continue mech vent/sedation protocol (3) Hypokalemia Code(s): E87.6 - HYPOKALEMIA Status: Acute (4) NSTEMI (non-ST elevated myocardial infarction) Code(s): I21.4 - NON-ST ELEVATION (NSTEMI) MYOCARDIAL INFARCTION Status: Acute (5) SYLVAIN (acute kidney injury) Code(s): N17.9 - ACUTE KIDNEY FAILURE, UNSPECIFIED Status: Acute Plan: Resolving, continue IVF's, avoid nephrotoxic meds and limit contrast - Plan continue antibiotics, respiratory therapy, DVT proph w/SCDs Continue critical support Continue pulm support with mech ventilation Continue Cefepime/Dexamethasone/Colchicine/Lovenox Nutriotional support with Vital HP Add D5NS @ 75ml/h KCL replacement AM lab: BMP, CBC, CRP, Ferritin PCXR in am
[2020-12-12] MEDS: Dextrose 5 % And 0.9 % NaCl 1,000 ML IV SCH (19:27)
[2020-12-12] MEDS: Atorvastatin Calcium 40 MG TAB PO SCH (20:27)
[2020-12-13] MEDS: Lorazepam 2 MG/ML VIAL SLOW IVP PRN ×4 (04:04→22:40)
[2020-12-13] MEDS: Vecuronium 10 MG VIAL IV PRN ×4 (04:59→22:54)
[2020-12-13 05:03] LABS: Anion Gap 10 mmol/L (10-20); BUN (Urea Nitrogen) 24 mg/dL (9.8-20.1); Calc. Creatinine Clearance 81 mL/min (70-130); Calcium 7.5 mg/dL (7.8-10.44); Carbon Dioxide 21 mmol/L (23-31); Chloride 110 mmol/L (98-107); Glucose 173 mg/dL (80-115); Potassium 3.3 mmol/L (3.5-5.1); Sodium 138 mmol/L (136-145)
[2020-12-13 05:26] LABS: Band 1 % (5-11); Hypochromia SLIGHT = 6-15 cells (100X) (0-5/hpf); Lymphocytes 15 % (21-51); MDiff Complete? YES; Mean Corpuscular HGB CONC 32.9 g/dL (32.0-36.0); Mean Corpuscular Hemoglobin 29.5 pg (27.0-31.0); Mean Corpuscular Volume 89.9 fL (78.0-98.0); Mean Platelet Volume 7.3 fL (7.4-10.4); Monocytes 3 % (0-10); Neutrophil 81 % (42-75); Platelet Count 265 thou/uL (130-400); Platelet Morphology Comment Appears Adequate; RBC Distribution Width 12.7 % (11.5-14.5); Red Blood Cell (RBC) Count 3.72 mill/uL (4.20-5.40); White Blood Cell (WBC) Count 9.2 thou/uL (4.8-10.8)
[2020-12-13] MEDS ORDERED: Potassium Chloride 20 MEQ TAB PO SCH (06:45)
[2020-12-13] MEDS: Mometasone 200 MCG/Formoterol 5 MCG 120 PUFF INHALER INH SCH ×2 (07:24→20:08)
[2020-12-13] MEDS: Dexamethasone 4 mg/ml Vial SLOW IVP SCH (07:31)
[2020-12-13] MEDS: Dextrose 5 % And 0.9 % NaCl 1,000 ML IV SCH (07:31)
[2020-12-13] MEDS: Enoxaparin Sodium 60 MG/0.6 ML SYRINGE SC SCH ×2 (07:34→21:25)
[2020-12-13] MEDS: Pantoprazole 40 MG VIAL IVP SCH ×2 (07:35→21:25)
[2020-12-13] MEDS: Colchicine 0.6 MG TAB PO SCH ×2 (08:03→21:25)
[2020-12-13] MEDS: Cefepime 2 GM in Sodium Chloride 0.9% 100 ML IVPB SCH ×2 (09:25→21:26)
--- NOTE | 2020-12-13 09:34 | RAD ---
PORTABLE CHEST: INDICATION: CCU followup on ventilator. COMPARISON: 12/12/2020. FINDINGS: Left basilar infiltrate and atelectasis and small bilateral effusions again noted. ET tube and NG tu be remain in place. Right lung appears clear. Central line unchanged. IMPRESSION: Above findings not significantly changed from yesterday. POS: OFF
--- NOTE | 2020-12-13 15:11 | PRG ---
DATE OF SERVICE: 12/13/2020 SUBJECTIVE: Ms. Lowry continues to have slow improvement in her gas exchange and her clinical condition. OBJECTIVE: VITAL SIGNS: Blood pressure 152/90, heart rate 65, respiratory rates in the teens, FiO2 is at 40%. Intake and outputs positive 867. LUNGS: Remarkable for equal breath sounds. HEART: Regular rhythm. ABDOMEN: Soft. EXTREMITIES: Without asymmetry. LABORATORY DATA: White count 9.2, hemoglobin 11, platelets 265. Sodium 138, potassium 3.3, chloride 110, bicarb 21, BUN 24, creatinine 0.6. IMPRESSION: 1. Respiratory failure associated with pneumonia, status post prone ventilation, clinically improving. 2. Pneumomediastinum on admission CT. No pneumothorax has developed in the interim. PLAN: Continue current ventilation with slow decreases in ventilatory support. Supportive care. Critical care time 30 min. Job ID: [id number] MTDD
--- NOTE | 2020-12-13 17:16 | PDOC.HOSPP ---
- Subjective Encounter Date: 12/13/20 Encounter Time: 16:10 Subjective: f/u for COVID PNA/resp failure on mech ventilation with FIO2 40%, rate 14. No new events noted per nursing. - Objective Vital Signs & Weight: Vital Signs (12 hours) Pulse Pulse Pulse Resp BP BP BP 12/13/20 16:00 14 12/13/20 14:22 65 152/90 H 12/13/20 13:58 14 12/13/20 12:00 14 12/13/20 10:55 59 L 60 141/84 H 118/81 12/13/20 10:54 62 118/80 12/13/20 10:00 14 12/13/20 08:00 14 12/13/20 07:24 67 14 12/13/20 07:23 68 12/13/20 06:00 18 Pulse Ox Pulse Ox Pulse Ox 12/13/20 16:00 12/13/20 14:22 12/13/20 13:58 12/13/20 12:00 12/13/20 10:55 98 98 12/13/20 10:54 12/13/20 10:00 12/13/20 08:00 95 12/13/20 07:24 96 12/13/20 07:23 12/13/20 06:00 Weight Admit Weight 132 lb Weight 129 lb 10.109 oz Most Recent Monitor Data Heart Rate from ECG 68 NIBP 160/88 NIBP BP-Mean 112 Respiration from ECG 28 SpO2 92 I&O: 12/12/20 12/13/20 12/14/20 06:59 06:59 06:59 Intake Total 639 2180.6 160 Output Total 2030 1313 815 Balance -1391 867.6 -655 Result Diagrams: 12/13/20 03:40 12/13/20 03:40 Additional Labs: Microbiology 12/09/20 09:29 Urine Straight Catheter Urine Culture - Final NO GROWTH AT 48 HOURS 12/09/20 09:35 Venous blood - Left Arm Blood Culture - Preliminary NO GROWTH AT 48 HOURS 12/09/20 09:20 Venous blood - Left Arm Blood Culture - Preliminary NO GROWTH AT 48 HOURS Laboratory Tests 12/09/20 12/09/20 12/09/20 09:30 09:30 09:30 D-Dimer 0.49 H Potassium 3.2 L Ferritin Troponin I C-Reactive Protein B-Natriuretic Peptide 179.3 H TSH 3rd Generation Influenza A RNA INAAT Influenza B RNA INAAT SARS-CoV-2 Rap RNA(RT-PCR) 12/09/20 12/09/20 12/09/20 10:30 10:30 10:30 D-Dimer Potassium Ferritin 3661.63 H Troponin I C-Reactive Protein 11.16 H B-Natriuretic Peptide TSH 3rd Generation 0.2038 L Influenza A RNA INAAT Influenza B RNA INAAT SARS-CoV-2 Rap RNA(RT-PCR) 12/09/20 12/09/20 12/09/20 10:31 10:32 16:01 D-Dimer Potassium Ferritin Troponin I 0.515 H* 1.216 H* C-Reactive Protein B-Natriuretic Peptide TSH 3rd Generation Influenza A RNA INAAT Not Detected Influenza B RNA INAAT Not Detected SARS-CoV-2 Rap RNA(RT-PCR) DETECTED A* 12/09/20 12/09/20 12/10/20 19:36 23:03 03:00 D-Dimer Potassium 2.8 L* Ferritin Troponin I 1.194 H* 1.773 H* C-Reactive Protein B-Natriuretic Peptide TSH 3rd Generation Influenza A RNA INAAT Influenza B RNA INAAT SARS-CoV-2 Rap RNA(RT-PCR) 12/12/20 12/12/20 03:50 03:50 D-Dimer Potassium Ferritin 1643.90 H Troponin I C-Reactive Protein 2.27 H B-Natriuretic Peptide TSH 3rd Generation Influenza A RNA INAAT Influenza B RNA INAAT SARS-CoV-2 Rap RNA(RT-PCR) Radiology Reviewed by me: Yes (PCXR - bilat infiltrates/effusions, lines/tubes in place) EKG Reviewed by me: Yes (Tele - SR) Hospitalist ROS - Medication Medications: Active Medications Generic Name Dose Route Start Last Admin Trade Name Freq PRN Reason Stop Dose Admin Atorvastatin Calcium 40 mg 12/09/20 21:00 12/12/20 20:27 Atorvastatin Calcium 40 Mg Tab PO 40 mg HS GLO Administration Colchicine 0.6 mg 12/09/20 21:00 12/13/20 08:03 Colchicine 0.6 Mg Tab PO 0.6 mg BID GLO Administration Dexamethasone 6 mg 12/10/20 09:00 12/13/20 07:31 Dexamethasone 4 Mg/Ml Vial SLOW IVP 6 mg DAILY GLO Administration Enoxaparin Sodium 60 mg 12/09/20 21:00 12/13/20 07:34 Enoxaparin Sodium 60 Mg/0.6 Ml Syringe SC 60 mg 0900,2100 GLO Administration Norepinephrine Bitartrate 250 mls @ 0 mls/hr 12/09/20 12:51 12/10/20 08:57 Levophed IVPB 250 mls PRN PRN Administration To maintain MAP > 65 Protocol Titrate Cefepime HCl 2 gm/ Sodium 100 mls @ 200 mls/hr 12/09/20 22:00 12/13/20 09:25 Chloride IVPB 100 mls 1000,2200 GLO Administration Dextrose/Sodium Chloride 1,000 mls @ 75 mls/hr 12/12/20 17:45 12/13/20 07:31 D5 0.9% Ns IV 1,000 mls .[id number] GLO Administration Lorazepam 2 mg 12/09/20 14:00 12/13/20 07:34 Lorazepam 2 Mg/Ml Vial SLOW IVP 01/08/21 14:00 2 mg Q1H PRN Administration Breakthrough agitation Mometasone Furoate/Formoterol Fumar 2 puff 12/09/20 18:30 12/13/20 07:24 Mometasone 200 Mcg/Formoterol 5 Mcg 120 Puff Inhaler INH 2 puff BID-RT GLO Administration Pantoprazole Sodium 40 mg 12/09/20 14:00 12/13/20 07:35 Pantoprazole 40 Mg Vial IVP 40 mg BID GLO Administration Propofol 1,000 mg 12/09/20 14:00 12/12/20 23:52 Propofol 1,000 Mg/100 Ml Vial IV 01/08/21 14:00 1,000 mg INF PRN Administration TO ACHIEVE GOAL RASS Protocol Sodium Chloride 10 ml 12/11/20 21:00 12/13/20 07:35 Flush - Normal Saline 10 Ml Syringe IVF 10 ml Q12HR GLO Administration Vecuronium [place] 10 mg 12/09/20 20:15 12/13/20 07:34 Vecuronium 10 Mg Vial IV 10 mg Q1H PRN Administration Agitation Hospitalist Exam Vitals: Vital Signs (12 hours) Pulse Pulse Pulse Resp BP BP BP 12/13/20 16:00 14 12/13/20 14:22 65 152/90 H 12/13/20 13:58 14 12/13/20 12:00 14 12/13/20 10:55 59 L 60 141/84 H 118/81 12/13/20 10:54 62 118/80 12/13/20 10:00 14 12/13/20 08:00 14 12/13/20 07:24 67 14 12/13/20 07:23 68 12/13/20 06:00 18 Pulse Ox Pulse Ox Pulse Ox 12/13/20 16:00 12/13/20 14:22 12/13/20 13:58 12/13/20 12:00 12/13/20 10:55 98 98 12/13/20 10:54 12/13/20 10:00 12/13/20 08:00 95 12/13/20 07:24 96 12/13/20 07:23 12/13/20 06:00 Weight Admit Weight 132 lb Weight 129 lb 10.109 oz Most Recent Monitor Data Heart Rate from ECG 68 NIBP 160/88 NIBP BP-Mean 112 Respiration from ECG 28 SpO2 92 General - other findings: sedate on mech vent Eye: anicteric sclera ENT: normocephalic atraumatic, no oropharyngeal lesions ENT - other findings: ETT in place Neck: supple, symmetric, no JVD, no thyromegaly, no lymphadenopathy Heart: RRR, no gallops, no rubs, normal peripheral pulses Heart - other findings: S1, S2 Respiratory: no wheezes, no tachypnea Respiratory - other findings: diminished in bases, few rhonchi Gastrointestinal: soft, non-tender, non-distended, normal bowel sounds, no palpable masses Extremities: no cyanosis, no clubbing, no edema Skin: normal turgor Neurological - other findings: sedate on mech vent Musculoskeletal - other findings: seat Psychiatric: somnolent, lethargic Hosp A/P (1) Pneumonia due to COVID-19 virus Code(s): U07.1 - COVID-19; J12.82 - PNEUMONIA DUE TO CORONAVIRUS DISEASE 2019 Status: Acute Plan: Continue Cefepime/Colchicine/Dexamethasone/Lovenox (2) Acute respiratory failure with hypoxia Code(s): J96.01 - ACUTE RESPIRATORY FAILURE WITH HYPOXIA Status: Acute Plan: Continue mec ventilation, wean as clinically indicated (3) Hypokalemia Code(s): E87.6 - HYPOKALEMIA Status: Acute (4) NSTEMI (non-ST elevated myocardial infarction) Code(s): I21.4 - NON-ST ELEVATION (NSTEMI) MYOCARDIAL INFARCTION Status: Acute Plan: medical mgmt (5) SYLVAIN (acute kidney injury) Code(s): N17.9 - ACUTE KIDNEY FAILURE, UNSPECIFIED Status: Acute Plan: Improved, continue low-volume IVF's, avoid nephrotoxic meds - Plan continue antibiotics, clinical social work aide, respiratory therapy, DVT proph w/lovenox, DVT proph w/SCDs Continue critical support Continue pulm support with mech ventilation Continue Cefepime/Dexamethasone/Colchicine/Lovenox Nutriotional support with Vital HP Add D5NS @ 75ml/h KCL replacement AM lab: BMP, CBC, CRP, Ferritin PCXR in am
[2020-12-13] MEDS ORDERED: Sodium Chloride 0.9% 1,000 ML IV SCH (18:45)
[2020-12-13] MEDS ORDERED: Sodium Chloride 0.9% 500 ML IVPB SCH (18:45)
[2020-12-13] MEDS: Atorvastatin Calcium 40 MG TAB PO SCH (21:24)
[2020-12-13] MEDS: Propofol 1,000 MG/100 ML VIAL IV PRN (21:24)
[2020-12-13] MEDS ORDERED: Sterile Water 10 ML ONE (22:53)
[2020-12-14] MEDS: Lorazepam 2 MG/ML VIAL SLOW IVP PRN ×5 (01:20→23:05)
[2020-12-14] MEDS: Dextrose 5 % And 0.9 % NaCl 1,000 ML IV SCH ×2 (01:41→14:24)
[2020-12-14] MEDS: Vecuronium 10 MG VIAL IV PRN ×4 (03:45→23:05)
[2020-12-14 05:04] LABS: Band 4 % (5-11); Eosinophils 1 % (0-10); Hemoglobin 11.8 g/dL (12.0-16.0); Lymphocytes 14 % (21-51); MDiff Complete? YES; Mean Corpuscular HGB CONC 33.8 g/dL (32.0-36.0); Mean Corpuscular Hemoglobin 30.2 pg (27.0-31.0); Mean Corpuscular Volume 89.5 fL (78.0-98.0); Mean Platelet Volume 7.4 fL (7.4-10.4); Metamyelocyte 1 % (0-0); Monocytes 6 % (0-10); Neutrophil 74 % (42-75); Nucleated RBC 1 % (0); Platelet Count 247 thou/uL (130-400); Platelet Morphology Comment Appears Adequate; RBC Distribution Width 12.8 % (11.5-14.5); Red Blood Cell (RBC) Count 3.89 mill/uL (4.20-5.40); White Blood Cell (WBC) Count 19.3 thou/uL (4.8-10.8)
[2020-12-14 05:16] LABS: Anion Gap 13 mmol/L (10-20); BUN (Urea Nitrogen) 18 mg/dL (9.8-20.1); Calc. Creatinine Clearance 87 mL/min (70-130); Calcium 7.7 mg/dL (7.8-10.44); Carbon Dioxide 19 mmol/L (23-31); Chloride 109 mmol/L (98-107); Glucose 104 mg/dL (80-115); Sodium 138 mmol/L (136-145)
[2020-12-14 05:23] LABS: Potassium 2.9 mmol/L (3.5-5.1)
[2020-12-14] MEDS: Potassium Chloride 40 MEQ in Premix Bag 1 BAG IVPB SCH ×2 (06:16→10:58)
[2020-12-14] MEDS: Propofol 1,000 MG/100 ML VIAL IV PRN ×2 (06:39→14:24)
[2020-12-14] MEDS: Mometasone 200 MCG/Formoterol 5 MCG 120 PUFF INHALER INH SCH ×2 (07:02→18:51)
[2020-12-14] MEDS: Dexamethasone 4 mg/ml Vial SLOW IVP SCH (08:39)
[2020-12-14] MEDS: Pantoprazole 40 MG VIAL IVP SCH ×2 (08:39→21:39)
[2020-12-14] MEDS: Colchicine 0.6 MG TAB PO SCH ×2 (08:39→21:41)
[2020-12-14] MEDS: Enoxaparin Sodium 60 MG/0.6 ML SYRINGE SC SCH ×2 (08:40→21:41)
--- NOTE | 2020-12-14 09:15 | RAD ---
PORTABLE CHEST: INDICATION: Pneumonia and CCU followup. COMPARISON: 12/13/2020. FINDINGS: ET tube and central line unchanged. Small bilateral effusions and bibasilar infiltrates and atelectasis. Hazy npsdju-[id number]-[id number] infiltra te in the mid lung schwab bilaterally. IMPRESSION: No acute interval change. POS: AGW
--- NOTE | 2020-12-14 10:49 | PRG ---
DATE OF SERVICE: 12/14/2020 SUBJECTIVE: Ms. Lowry remains stable. OBJECTIVE: VITAL SIGNS: O2 saturations 97%, FiO2 we turned down from 60% to 50%, blood pressure 129/84, heart rate is 102. With bilevel high pressure of 32, her exhaled volumes are 680. LUNGS: Remarkable for equal breath sounds. HEART: Regular rhythm. ABDOMEN: Soft. LABORATORY DATA: Chest x-ray is unchanged. White count 19.3, hemoglobin 11.8, platelets 247. Sodium 138, potassium 3.9, chloride 109, bicarb 19, BUN 18, creatinine 0.5. IMPRESSION: 1. Respiratory failure associated with COVID pneumonia. 2. Improving pulmonary compliance with COVID pneumonia. 3. Pneumomediastinum on presentation that has not presented any clinical issues. 4. Status post prone ventilation. 5. History of hypertension. 6. History of knee surgery in the past. PLAN: Continue supportive care. We probably can switch her today or tomorrow to volume ventilation. Start slowly decrease in ventilatory support. Critical care time 30 min. Job ID: [id number] MTDD
[2020-12-14] MEDS: Cefepime 2 GM in Sodium Chloride 0.9% 100 ML IVPB SCH ×2 (10:58→21:39)
--- NOTE | 2020-12-14 12:07 | PQF ---
CLINICAL DOCUMENTATION CLARIFICATION FORM: Dear Dr. España Date: 12/14/2020 Please exercise your independent, professional judgment in responding to the clarification form. Clinical indicators are provided on the bottom of this form for your review. Please check appropriate box(s): [ ] Sepsis due to COVID-19 virus [ ] Severe Sepsis due to COVID-19 virus with associated organ dyfunction: [ ] SYLVAIN [ ] Other: ____ [ ] SIRS due to non-infectious process (please specify): [ ] With acute organ dysfunction [ ] Without acute organ dysfunction [ x ] Localized infection without sepsis [ ] Other diagnosis [ ] Unable to determine In addition, please specify: Present on Admission (POA): [ x ] Yes [ ] No [ ] Unable to determine For continuity of documentation, please document condition throughout progress notes and discharge summary. Thank You. CLINICAL INDICATORS - SIGNS / SYMPTOMS / LABS / RESULTS AND LOCATION IN EMR *H&P 12/09 ([facility]): * Noted to have a change in mental status and possibly syncope and unresponsiveness * Saturation in the 70s to 80s and was put on non-rebreather. * Respirations were 25 to 30, blood pressure was 90/60, pulse was around 100. * Acute hypoxic respiratory failure, most likely secondary to COVID. * Sepsis, most likely secondary to COVID. * Pmj-PD-etgqruocd myocardial infarction. Likely demand related from the straining. * Acute kidney injury *LAB ([facility]): WBC Band Neut % Lactic Acid CRP 12/09 2.9-6.2 1.5-2.2 11.16 12/10 7.2 13 12/11 9.3 1 12/12 7.6 2.27 12/13 9.2 1 12/14 19.3 4 *Microbiology 12/09 ([facility]): Blood Culture- Preliminary No growth at 48 hours *Vital Signs ([facility]): 12/10 Temp 95.6 12/13 Temp 100 12/14 Pulse 97-104 RISK FACTORS / RESULTS AND LOCATION IN EMR *H&P 12/09 ([facility]): 65-year-old *PN 12/11 ([facility]): Pneumonia due to COVID-19 virus TREATMENTS / RESULTS AND LOCATION IN EMR *ED 12/09: Oxygen-ventilator; NS 500 ml, 1L, 100 ml/hr IV; Azithromycin IV; Ceftriaxone IV *H&P 12/09 ([facility]): We will start her on some antibiotics IV hydration. *LAB ([facility]): CBC Daily 12/09-12/14; Lactic Acid 12/09 (x2); CRP 12/09, 12/12 *Microbiology 12/09 ([facility]): Blood culture (x2); Urine Culture *Pulmonology Consultation 12/09 ([facility]) Thank you, Jami CDS/[employer]ac[employer] Spray Booth Operator Signature: Jami Jones RN, CDS Phone #: [phone] [email or web address] This is a permanent part of the Medical Record MTDD
--- NOTE | 2020-12-14 12:24 | PDOC.PALCO ---
Palliative Care Consult - Consult Details Requesting Physician: Dr Ford/Confirmed with Hospitalist Dr España Reason for Consult: goals of care, assistance with communication prognosis/disease - Pertinent HPI 65 year old female with history of hypertension who has had an increase in shortness of breath. Onset 6-7 days prior to presentation to the emergency room with generalized body aches, pain, but no shortness of breath initially. Reports of syncope and altered mental stats prior to calling EMS. Resides at a hotel as she and her family just moved to the area. Her spouse is reported to be at [facility] for Covid, not intubated on [place]. After presentation to the emergency room she was noted to have poor O2 saturation and placed on non rebreather/hypotensive/fluid resuscitation. Identified to be Covid +. Secondary to continued respiratory compromise she was intubated. CTA was negative for PE but significant for Covid infiltrates bilaterally. Admitted to CCU for medical management. - Pertinent PMH Hypertension - Social History Smoking Status: Never smoker Smoking: no tobacco exposure Alcohol Use: none Drug Use History: none Living Situation: - Medications MAR Reviewed: Yes - Allergies Allergies/Adverse Reactions: Allergies Allergy/AdvReac Type Severity Reaction Status Date / Time No Known Allergies Allergy Unverified 12/09/20 12:28 - Subjective Intubated, mechanical ventilation. Bilevel FiO2 60%. Hypotensive, HR elevated. No changes noted on chest x-ray. Sedated, pressure support, abx, steroids. Dialysis to be initiated today. - ROS Non Response: due to endotracheal tube, due to mental status - Objective Vital Signs: Vital Signs - Most Recent Temp Pulse Resp BP Pulse Ox 99.1 F 103 H 14 145/96 H 97 12/14/20 05:00 12/14/20 10:39 12/14/20 10:00 12/14/20 10:39 12/14/20 08:00 Palliative Performance Scale: 20 - Physical Exam Constitutional: encephalitic, ill appearing HEENT: sclera anicteric Respiratory: diminished lung sound Deviation from normal: bilaterally adventicious Cardiovascular: RRR Gastrointestinal: soft Genitourinary: sidhu catheter Musculoskeletal: no cyanosis, no clubbing, pulses present Deviation from normal: sedated, facial symmetry Skin: cap refill <2 seconds, no lesions Deviation from normal: encephalopathic, sedated - Problem List (1) Palliative care encounter Code(s): Z51.5 - ENCOUNTER FOR PALLIATIVE CARE Current Visit: Yes Status: Acute (2) SYLVAIN (acute kidney injury) Code(s): N17.9 - ACUTE KIDNEY FAILURE, UNSPECIFIED Current Visit: Yes Status: Acute (3) Acute respiratory failure with hypoxia Code(s): J96.01 - ACUTE RESPIRATORY FAILURE WITH HYPOXIA Current Visit: Yes Status: Acute (4) Hypokalemia Code(s): E87.6 - HYPOKALEMIA Current Visit: Yes Status: Acute (5) NSTEMI (non-ST elevated myocardial infarction) Code(s): I21.4 - NON-ST ELEVATION (NSTEMI) MYOCARDIAL INFARCTION Current Visit: Yes Status: Acute (6) Pneumonia due to COVID-19 virus Code(s): U07.1 - COVID-19; J12.82 - PNEUMONIA DUE TO CORONAVIRUS DISEASE 2019 Current Visit: Yes Status: Acute - Plan/Recommendations Plan: Introduced palliative care to primary contact Vika [phone]. Vika is family, Mrs Lowry and her family recently relocated to this area. Her spouse is in [place] with Covid, reportedly doing well as he is tolerating O2 support and hopeful for discharge soon, he or her son do not speak Portuguese. Vika assisted in merging the call with patient Son Stevan Lowry, he will serve as the decision maker currently until his father is able to assist. General overview of patient status. Arranging for face time between Stevan and his mother for him to see her, he is aware she is intubated and sedated. Will utilize cultural [employer] to communicate to Stevan and patient if she becomes awake. Primary language is Jamieiarati /available in [employer]. Communicated with Dr España Palliative care will continue to assist with communication in relation to disease processes and support family. Primary language of Patient/her spouse/and son Chinyere Lowry son [phone] Portuguese speaking family member Amanand [phone] [70] minutes spent on this encounter with >50% of the time in counseling and coordination of care. Thank you for this very appropriate consult.
--- NOTE | 2020-12-14 14:18 | PDOC.HOSPP ---
- Subjective Encounter Date: 12/14/20 Encounter Time: 12:10 Subjective: f/u for COVID PNA/resp failure on mech vent. Receiving BiLevel 32/7 with rate 14. No new changes reported per nursing. - Objective Vital Signs & Weight: Vital Signs (12 hours) Temp Pulse Resp BP Pulse Ox 12/14/20 12:00 97.5 F L 15 12/14/20 10:39 103 H 145/96 H 12/14/20 10:00 14 12/14/20 08:00 14 97 12/14/20 07:02 104 H 14 94 L 12/14/20 07:00 102 H 134/87 12/14/20 06:00 14 12/14/20 05:00 99.1 F 12/14/20 04:00 14 12/14/20 02:27 97 Weight Admit Weight 132 lb Weight 125 lb 3.561 oz Most Recent Monitor Data Heart Rate from ECG 84 NIBP 116/82 NIBP BP-Mean 93 Respiration from ECG 15 SpO2 97 I&O: 12/13/20 12/14/20 12/15/20 06:59 06:59 06:59 Intake Total 2180.6 1774.4 60 Output Total 1313 1675 430 Balance 867.6 99.4 -370 Result Diagrams: 12/14/20 04:30 12/14/20 04:30 Additional Labs: Microbiology 12/09/20 09:29 Urine Straight Catheter Urine Culture - Final NO GROWTH AT 48 HOURS 12/09/20 09:35 Venous blood - Left Arm Blood Culture - Preliminary NO GROWTH AT 48 HOURS 12/09/20 09:20 Venous blood - Left Arm Blood Culture - Preliminary NO GROWTH AT 48 HOURS Laboratory Tests 12/09/20 12/09/20 12/09/20 09:30 09:30 09:30 D-Dimer 0.49 H Potassium 3.2 L Ferritin Troponin I C-Reactive Protein B-Natriuretic Peptide 179.3 H TSH 3rd Generation Influenza A RNA INAAT Influenza B RNA INAAT SARS-CoV-2 Rap RNA(RT-PCR) 12/09/20 12/09/20 12/09/20 10:30 10:30 10:30 D-Dimer Potassium Ferritin 3661.63 H Troponin I C-Reactive Protein 11.16 H B-Natriuretic Peptide TSH 3rd Generation 0.2038 L Influenza A RNA INAAT Influenza B RNA INAAT SARS-CoV-2 Rap RNA(RT-PCR) 12/09/20 12/09/20 12/09/20 10:31 10:32 16:01 D-Dimer Potassium Ferritin Troponin I 0.515 H* 1.216 H* C-Reactive Protein B-Natriuretic Peptide TSH 3rd Generation Influenza A RNA INAAT Not Detected Influenza B RNA INAAT Not Detected SARS-CoV-2 Rap RNA(RT-PCR) DETECTED A* 12/09/20 12/09/20 12/10/20 19:36 23:03 03:00 D-Dimer Potassium 2.8 L* Ferritin Troponin I 1.194 H* 1.773 H* C-Reactive Protein B-Natriuretic Peptide TSH 3rd Generation Influenza A RNA INAAT Influenza B RNA INAAT SARS-CoV-2 Rap RNA(RT-PCR) 12/12/20 12/12/20 03:50 03:50 D-Dimer Potassium Ferritin 1643.90 H Troponin I C-Reactive Protein 2.27 H B-Natriuretic Peptide TSH 3rd Generation Influenza A RNA INAAT Influenza B RNA INAAT SARS-CoV-2 Rap RNA(RT-PCR) Radiology Reviewed by me: Yes (PCXR - bilat infiltrates, lines/tubes in place) EKG Reviewed by me: Yes (Tele - SR) Hospitalist ROS - Medication Medications: Active Medications Generic Name Dose Route Start Last Admin Trade Name Freq PRN Reason Stop Dose Admin Atorvastatin Calcium 40 mg 12/09/20 21:00 12/13/20 21:24 Atorvastatin Calcium 40 Mg Tab PO 40 mg HS GLO Administration Colchicine 0.6 mg 12/09/20 21:00 12/14/20 08:39 Colchicine 0.6 Mg Tab PO 0.6 mg BID GLO Administration Dexamethasone 6 mg 12/10/20 09:00 12/14/20 08:39 Dexamethasone 4 Mg/Ml Vial SLOW IVP 6 mg DAILY GLO Administration Enoxaparin Sodium 60 mg 12/09/20 21:00 12/14/20 08:40 Enoxaparin Sodium 60 Mg/0.6 Ml Syringe SC 60 mg 0900,2100 GLO Administration Norepinephrine Bitartrate 250 mls @ 0 mls/hr 12/09/20 12:51 12/10/20 08:57 Levophed IVPB 250 mls PRN PRN Administration To maintain MAP > 65 Protocol Titrate Cefepime HCl 2 gm/ Sodium 100 mls @ 200 mls/hr 12/09/20 22:00 12/14/20 10:58 Chloride IVPB 100 mls 1000,2200 GLO Administration Dextrose/Sodium Chloride 1,000 mls @ 75 mls/hr 12/14/20 00:15 12/14/20 01:41 D5 0.9% Ns IV 1,000 mls .[id number] GLO Administration Lorazepam 2 mg 12/09/20 14:00 12/14/20 08:39 Lorazepam 2 Mg/Ml Vial SLOW IVP 01/08/21 14:00 2 mg Q1H PRN Administration Breakthrough agitation Mometasone Furoate/Formoterol Fumar 2 puff 12/09/20 18:30 12/14/20 07:02 Mometasone 200 Mcg/Formoterol 5 Mcg 120 Puff Inhaler INH 2 puff BID-RT GLO Administration Pantoprazole Sodium 40 mg 12/09/20 14:00 12/14/20 08:39 Pantoprazole 40 Mg Vial IVP 40 mg BID GLO Administration Propofol 1,000 mg 12/09/20 14:00 12/14/20 06:39 Propofol 1,000 Mg/100 Ml Vial IV 01/08/21 14:00 1,000 mg INF PRN Administration TO ACHIEVE GOAL RASS Protocol Sodium Chloride 10 ml 12/11/20 21:00 12/14/20 08:40 Flush - Normal Saline 10 Ml Syringe IVF 10 ml Q12HR GLO Administration Vecuronium [place] 10 mg 12/09/20 20:15 12/14/20 08:38 Vecuronium 10 Mg Vial IV 10 mg Q1H PRN Administration Agitation Hospitalist Exam Vitals: Vital Signs (12 hours) Temp Pulse Resp BP Pulse Ox 12/14/20 12:00 97.5 F L 15 12/14/20 10:39 103 H 145/96 H 12/14/20 10:00 14 12/14/20 08:00 14 97 12/14/20 07:02 104 H 14 94 L 12/14/20 07:00 102 H 134/87 12/14/20 06:00 14 12/14/20 05:00 99.1 F 12/14/20 04:00 14 12/14/20 02:27 97 Weight Admit Weight 132 lb Weight 125 lb 3.561 oz Most Recent Monitor Data Heart Rate from ECG 84 NIBP 116/82 NIBP BP-Mean 93 Respiration from ECG 15 SpO2 97 General - other findings: sedate on mech vent Eye: anicteric sclera ENT: normocephalic atraumatic, no oropharyngeal lesions ENT - other findings: ETT in place Neck: supple, symmetric, no JVD, no thyromegaly, no lymphadenopathy Heart: RRR, no gallops, no rubs, normal peripheral pulses Heart - other findings: S1, S2 Respiratory: no wheezes, tachypneic Respiratory - other findings: diminished in bases Gastrointestinal: soft, non-tender, non-distended, normal bowel sounds, no palpable masses Extremities: no cyanosis, no clubbing, no edema Skin: normal turgor Neurological - other findings: unresponsive on mech vent Psychiatric: somnolent, lethargic Hosp A/P (1) Pneumonia due to COVID-19 virus Code(s): U07.1 - COVID-19; J12.82 - PNEUMONIA DUE TO CORONAVIRUS DISEASE 2018 Status: Acute Plan: Continue Cefepime/Dexamethasone/Colchicine/Lovenox/Vit C/Zinc (2) Acute respiratory failure with hypoxia Code(s): J96.01 - ACUTE RESPIRATORY FAILURE WITH HYPOXIA Status: Acute Plan: Continue mech ventilation, serial PCXR/ABG's (3) Hypokalemia Code(s): E87.6 - HYPOKALEMIA Status: Acute Plan: KCL supplementation, serial K+ monitoring (4) NSTEMI (non-ST elevated myocardial infarction) Code(s): I21.4 - NON-ST ELEVATION (NSTEMI) MYOCARDIAL INFARCTION Status: Acute (5) SYLVAIN (acute kidney injury) Code(s): N17.9 - ACUTE KIDNEY FAILURE, UNSPECIFIED Status: Acute Plan: Resolved - Plan continue antibiotics, long term care social worker, respiratory therapy, DVT proph w/SCDs Continue critical support Continue pulm support with mech ventilation Continue Cefepime/Dexamethasone/Colchicine/Lovenox/Vit C/Zinc Nutritional support with Vital HP Add D5NS @ 75ml/h KCL replacement AM lab: BMP, CBC, CRP, Ferritin PCXR in am
[2020-12-14 16:36] LABS: Potassium 4.2 mmol/L (3.5-5.1)
[2020-12-14] MEDS: Atorvastatin Calcium 40 MG TAB PO SCH (21:41)
[2020-12-15] MEDS ORDERED: hydrALAZINE 20 MG/ML VIAL SLOW IVP PRN (01:39)
[2020-12-15] MEDS: Lorazepam 2 MG/ML VIAL SLOW IVP PRN ×3 (02:21→23:00)
[2020-12-15] MEDS: Vecuronium 10 MG VIAL IV PRN ×3 (02:21→23:00)
[2020-12-15] MEDS: Dextrose 5 % And 0.9 % NaCl 1,000 ML IV SCH ×2 (05:01→17:48)
[2020-12-15] MEDS: Propofol 1,000 MG/100 ML VIAL IV PRN ×2 (05:01→14:18)
[2020-12-15 06:09] LABS: Anion Gap 13 mmol/L (10-20); BUN (Urea Nitrogen) 15 mg/dL (9.8-20.1); Calc. Creatinine Clearance 91 mL/min (70-130); Calcium 7.1 mg/dL (7.8-10.44); Carbon Dioxide 21 mmol/L (23-31); Chloride 107 mmol/L (98-107); Glucose 157 mg/dL (80-115); Potassium 3.8 mmol/L (3.5-5.1); Sodium 137 mmol/L (136-145)
[2020-12-15] MEDS: Mometasone 200 MCG/Formoterol 5 MCG 120 PUFF INHALER INH SCH ×2 (06:58→19:45)
[2020-12-15 07:07] LABS: Mean Corpuscular Hemoglobin 30.9 pg (27.0-31.0); Mean Corpuscular Volume 90.8 fL (78.0-98.0); Mean Platelet Volume 7.2 fL (7.4-10.4); Platelet Count 207 thou/uL (130-400); Red Blood Cell (RBC) Count 3.89 mill/uL (4.20-5.40); White Blood Cell (WBC) Count 17.2 thou/uL (4.8-10.8)
[2020-12-15 07:28] LABS: Band 10 % (5-11); Lymphocytes 6 % (21-51); MDiff Complete? YES; Neutrophil 82 % (42-75); Platelet Morphology Comment Appears Decreased; Polychromasia SLIGHT = 2-3 cells (100X) (0-2/hpf); Reactive Lymphocytes 2 % (0-10)
--- NOTE | 2020-12-15 08:56 | RAD ---
PORTABLE CHEST: Date: 12/15/2020 INDICATION: CCU follow-up, on ventilator. COMPARISON: 12/14/2020. FINDINGS/IMPRESSION: ET tube and NG tube again noted. Central line unchanged. There are hazy alveolar infiltrates throughout both lungs with more confluent atelectasis and consoli dation in the left lung base. Bilateral effusions. Infiltrates appear more prominent today, although some of this may be due to exposure differences. No other acute change. POS: AGW
[2020-12-15] MEDS: Pantoprazole 40 MG GRANULES PACKET PER TUBE SCH ×2 (10:04→21:49)
[2020-12-15] MEDS: Colchicine 0.6 MG TAB PO SCH ×2 (10:04→21:53)
[2020-12-15] MEDS: Dexamethasone 4 mg/ml Vial SLOW IVP SCH (10:05)
[2020-12-15] MEDS: Cefepime 2 GM in Sodium Chloride 0.9% 100 ML IVPB SCH ×2 (10:05→21:49)
[2020-12-15] MEDS: Enoxaparin Sodium 60 MG/0.6 ML SYRINGE SC SCH ×2 (10:05→21:48)
[2020-12-15] MEDS: Zinc Sulfate 220 MG CAP PER TUBE SCH (10:14)
[2020-12-15] MEDS: Ascorbic Acid 500 mg Chewable Tablet PER TUBE SCH (10:14)
--- NOTE | 2020-12-15 13:18 | PRG ---
DATE OF SERVICE: 12/15/2020 SUBJECTIVE: Ms. Lowry remains mechanically ventilated. OBJECTIVE: VITAL SIGNS: Heart rate is 114, she is afebrile, blood pressure 131/86, respiratory rates in the high 20s to low 30s, FiO2 is 70%. We will try to slowly turn down her FiO2. LABORATORY DATA: White count 17.2, hemoglobin 12, and platelets 207. Sodium 137, potassium 3.8, chloride 107, bicarb 21, BUN 15, and creatinine 0.5. The patient has COVID pneumonia with respiratory failure. It does appears she received convalescent plasma on admission, so this will be ordered. It is debatable whether this helps with clearly makes a difference except steroids. Colchicine was started. We will continue with supportive care. IMPRESSION: 1. COVID pneumonia. 2. Pneumomediastinum on admission. Since admission, her fluid balance is about even. The weights are entirely accurate. We will continue to monitor this. The renal function remains the most part normal, we will continue current supportive care. Critical care time 30 min. Job ID: [id number] MTDD
--- NOTE | 2020-12-15 13:51 | PDOC.HOSPP ---
- Subjective Encounter Date: 12/15/20 Encounter Time: 13:49 Subjective: Ms. Lowry was seen today in follow-up of COVID pneumonia and respiratory failure. She is intubated and sedated. Her nurse tells me she will desaturate with just minimal movement. - Objective Vital Signs & Weight: Vital Signs (12 hours) Temp Pulse Resp BP Pulse Ox 12/15/20 12:00 97.9 F 31 H 12/15/20 10:29 114 H 131/86 12/15/20 10:00 97.6 F 31 H 12/15/20 08:00 97.8 F 14 91 L 12/15/20 06:58 109 H 14 88 L 12/15/20 06:56 109 H 151/85 H 12/15/20 06:00 33 H 12/15/20 04:00 97.5 F L 14 12/15/20 02:45 114 H 12/15/20 02:05 113 H 220/101 H 12/15/20 02:00 41 H Weight Admit Weight 132 lb Weight 127 lb 10.362 oz Most Recent Monitor Data Heart Rate from ECG 107 NIBP 115/71 NIBP BP-Mean 85 Respiration from ECG 33 SpO2 94 I&O: 12/14/20 12/15/20 12/16/20 06:59 06:59 06:59 Intake Total 1774.4 2976.7 60 Output Total 1675 1935 340 Balance 99.4 1041.7 -280 Result Diagrams: 12/15/20 05:25 12/15/20 05:25 Hospitalist ROS - Medication Medications: Active Medications Generic Name Dose Route Start Last Admin Trade Name Bradleyq PRN Reason Stop Dose Admin Ascorbic Acid 1,000 mg 12/15/20 09:00 12/15/20 10:14 Ascorbic Acid 500 Mg Chewable Tablet PER TUBE 1,000 mg DAILY GLO Administration Atorvastatin Calcium 40 mg 12/09/20 21:00 12/14/20 21:41 Atorvastatin Calcium 40 Mg Tab PO 40 mg HS GLO Administration Colchicine 0.6 mg 12/09/20 21:00 12/15/20 10:04 Colchicine 0.6 Mg Tab PO 0.6 mg BID GLO Administration Dexamethasone 6 mg 12/10/20 09:00 12/15/20 10:05 Dexamethasone 4 Mg/Ml Vial SLOW IVP 6 mg DAILY GLO Administration Enoxaparin Sodium 60 mg 12/09/20 21:00 12/15/20 10:05 Enoxaparin Sodium 60 Mg/0.6 Ml Syringe SC 60 mg 0900,2100 GLO Administration Hydralazine HCl 10 mg 12/15/20 01:39 12/15/20 02:05 Hydralazine 20 Mg/Ml Vial SLOW IVP 10 mg Q4H PRN Administration SBP Greater Than 180 Cefepime HCl 2 gm/ Sodium 100 mls @ 200 mls/hr 12/09/20 22:00 12/15/20 10:05 Chloride IVPB 100 mls 1000,2200 GLO Administration Dextrose/Sodium Chloride 1,000 mls @ 75 mls/hr 12/14/20 00:15 12/15/20 05:01 D5 0.9% Ns IV 1,000 mls .[id number] GLO Administration Lorazepam 2 mg 12/09/20 14:00 12/15/20 05:52 Lorazepam 2 Mg/Ml Vial SLOW IVP 01/08/21 14:00 2 mg Q1H PRN Administration Breakthrough agitation Mometasone Furoate/Formoterol Fumar 2 puff 12/09/20 18:30 12/15/20 06:58 Mometasone 200 Mcg/Formoterol 5 Mcg 120 Puff Inhaler INH 2 puff BID-RT GLO Administration Pantoprazole Sodium 40 mg 12/15/20 09:00 12/15/20 10:04 Pantoprazole 40 Mg Granules Packet PER TUBE 40 mg BID GLO Administration Propofol 1,000 mg 12/09/20 14:00 12/15/20 05:01 Propofol 1,000 Mg/100 Ml Vial IV 01/08/21 14:00 1,000 mg INF PRN Administration TO ACHIEVE GOAL RASS Protocol Sodium Chloride 10 ml 12/11/20 21:00 12/15/20 10:15 Flush - Normal Saline 10 Ml Syringe IVF 10 ml Q12HR GLO Administration Vecuronium [place] 10 mg 12/09/20 20:15 12/15/20 05:52 Vecuronium 10 Mg Vial IV 10 mg Q1H PRN Administration Agitation Zinc Sulfate 220 mg 12/15/20 09:00 12/15/20 10:14 Zinc Sulfate 220 Mg Cap PER TUBE 220 mg DAILY GLO Administration Hospitalist Exam Vitals: Vital Signs (12 hours) Temp Pulse Resp BP Pulse Ox 12/15/20 12:00 97.9 F 31 H 12/15/20 10:29 114 H 131/86 12/15/20 10:00 97.6 F 31 H 12/15/20 08:00 97.8 F 14 91 L 12/15/20 06:58 109 H 14 88 L 12/15/20 06:56 109 H 151/85 H 12/15/20 06:00 33 H 12/15/20 04:00 97.5 F L 14 12/15/20 02:45 114 H 12/15/20 02:05 113 H 220/101 H 12/15/20 02:00 41 H Weight Admit Weight 132 lb Weight 127 lb 10.362 oz Most Recent Monitor Data Heart Rate from ECG 107 NIBP 115/71 NIBP BP-Mean 85 Respiration from ECG 33 SpO2 94 Eye: PERRL, anicteric sclera Heart: RRR, no murmur, no gallops, no rubs Respiratory: rales (at the bases with diminished breath sounds.) Gastrointestinal: soft, non-tender, non-distended, normal bowel sounds, no palpable masses, no hepatomegaly Extremities: no cyanosis (palpable d.p. pulses bilaterally no lesions), 1+ LE edema Hosp A/P (1) Acute respiratory failure with hypoxia Code(s): J96.01 - ACUTE RESPIRATORY FAILURE WITH HYPOXIA Status: Acute (2) Pneumonia due to COVID-19 virus Code(s): U07.1 - COVID-19; J12.82 - PNEUMONIA DUE TO CORONAVIRUS DISEASE 2019 Status: Acute (3) SYLVIAN (acute kidney injury) Code(s): N17.9 - ACUTE KIDNEY FAILURE, UNSPECIFIED Status: Acute (4) Hypokalemia Code(s): E87.6 - HYPOKALEMIA Status: Acute - Plan * Acute respiratory failure with hypoxemia- Continue Decadron and Colchicine * Continue ventilatory support * Acute kidney disease- stable * Convalescent plasma has been ordered
[2020-12-15] MEDS: Atorvastatin Calcium 40 MG TAB PO SCH (21:49)
[2020-12-16] MEDS: Propofol 1,000 MG/100 ML VIAL IV PRN ×3 (00:44→20:05)
[2020-12-16] MEDS: Vecuronium 10 MG VIAL IV PRN (03:57)
[2020-12-16] MEDS: Lorazepam 2 MG/ML VIAL SLOW IVP PRN ×3 (03:57→23:28)
[2020-12-16 06:24] LABS: Hemoglobin 12.1 g/dL (12.0-16.0); Mean Corpuscular HGB CONC 33.1 g/dL (32.0-36.0); Mean Corpuscular Volume 90.6 fL (78.0-98.0); Mean Platelet Volume 7.5 fL (7.4-10.4); Platelet Count 199 thou/uL (130-400); RBC Distribution Width 13.2 % (11.5-14.5); Red Blood Cell (RBC) Count 4.04 mill/uL (4.20-5.40); White Blood Cell (WBC) Count 15.6 thou/uL (4.8-10.8)
[2020-12-16 06:34] LABS: MDiff Complete? YES
[2020-12-16 06:35] LABS: Band 7 % (5-11); Lymphocytes 7 % (21-51); Monocytes 1 % (0-10); Myelocyte 1 % (0-0); Neutrophil 84 % (42-75)
[2020-12-16 06:41] LABS: Anion Gap 12 mmol/L (10-20); BUN (Urea Nitrogen) 20 mg/dL (9.8-20.1); Calc. Creatinine Clearance 0 mL/min (70-130); Calcium 7.6 mg/dL (7.8-10.44); Carbon Dioxide 22 mmol/L (23-31); Chloride 108 mmol/L (98-107); Glucose 160 mg/dL (80-115); Magnesium 1.9 mg/dL (1.6-2.6); Potassium 3.1 mmol/L (3.5-5.1); Sodium 139 mmol/L (136-145)
[2020-12-16] MEDS ORDERED: Magnesium 2 GM/50 ML 2 GM in Premix Bag 1 BAG IVPB SCH (07:00)
[2020-12-16] MEDS: Mometasone 200 MCG/Formoterol 5 MCG 120 PUFF INHALER INH SCH (07:19)
[2020-12-16] MEDS: Dextrose 5 % And 0.9 % NaCl 1,000 ML IV SCH ×2 (09:03→23:28)
[2020-12-16] MEDS: Enoxaparin Sodium 60 MG/0.6 ML SYRINGE SC SCH ×2 (09:20→19:38)
[2020-12-16] MEDS: Dexamethasone 4 mg/ml Vial SLOW IVP SCH (09:21)
[2020-12-16] MEDS: Zinc Sulfate 220 MG CAP PER TUBE SCH (09:22)
[2020-12-16] MEDS: Ascorbic Acid 500 mg Chewable Tablet PER TUBE SCH (09:22)
[2020-12-16] MEDS: Pantoprazole 40 MG GRANULES PACKET PER TUBE SCH ×2 (09:22→19:37)
[2020-12-16] MEDS: Colchicine 0.6 MG TAB PO SCH ×2 (09:23→19:37)
[2020-12-16] MEDS: Cefepime 2 GM in Sodium Chloride 0.9% 100 ML IVPB SCH ×2 (09:28→23:15)
[2020-12-16] MEDS ORDERED: Magnesium 5 GM/10 ML Abboject SYRINGE ONE (09:33)
[2020-12-16] MEDS ORDERED: D5 1/2 NS w/20 mEq KCL 0 ML ONE (09:34)
[2020-12-16] MEDS: Potassium Chloride 20 MEQ in Premix Bag 1 BAG IVPB SCH ×2 (09:37→13:15)
--- NOTE | 2020-12-16 10:24 | PDOC.HOSPP ---
- Subjective Encounter Date: 12/16/20 Encounter Time: 10:22 Subjective: Ms. Lowry was seen today in follow-up of COVID infection with respiratory failure. She is intubated, and sedated. No complaints voiced by staff. It has been noted that her urine output has been marginal. - Objective Vital Signs & Weight: Vital Signs (12 hours) Temp Pulse Resp BP 12/16/20 07:19 107 H 160/88 H 12/16/20 06:00 14 12/16/20 04:00 96.7 F L 35 H 12/16/20 02:46 88 12/16/20 02:00 28 H 12/16/20 00:00 97.7 F 14 12/15/20 22:37 86 Weight Admit Weight 132 lb Weight 2.104 oz Most Recent Monitor Data Heart Rate from ECG 111 NIBP 148/81 NIBP BP-Mean 103 Respiration from ECG 21 SpO2 91 I&O: 12/15/20 12/16/20 12/17/20 06:59 06:59 06:59 Intake Total 2976.7 1885 Output Total 1935 1245 Balance 1041.7 640 Result Diagrams: 12/16/20 05:50 12/16/20 05:50 Hospitalist ROS - Medication Medications: Active Medications Generic Name Dose Route Start Last Admin Trade Name Freq PRN Reason Stop Dose Admin Ascorbic Acid 1,000 mg 12/15/20 09:00 12/16/20 09:22 Ascorbic Acid 500 Mg Chewable Tablet PER TUBE 1,000 mg DAILY GLO Administration Atorvastatin Calcium 40 mg 12/09/20 21:00 12/15/20 21:49 Atorvastatin Calcium 40 Mg Tab PO 40 mg HS GLO Administration Colchicine 0.6 mg 12/09/20 21:00 12/16/20 09:23 Colchicine 0.6 Mg Tab PO 0.6 mg BID GLO Administration Dexamethasone 6 mg 12/10/20 09:00 12/16/20 09:21 Dexamethasone 4 Mg/Ml Vial SLOW IVP 6 mg DAILY GLO Administration Enoxaparin Sodium 60 mg 12/09/20 21:00 12/16/20 09:20 Enoxaparin Sodium 60 Mg/0.6 Ml Syringe SC 60 mg 0900,2100 GLO Administration Hydralazine HCl 10 mg 12/15/20 01:39 12/15/20 02:05 Hydralazine 20 Mg/Ml Vial SLOW IVP 10 mg Q4H PRN Administration SBP Greater Than 180 Cefepime HCl 2 gm/ Sodium 100 mls @ 200 mls/hr 12/09/20 22:00 12/15/20 21:49 Chloride IVPB 100 mls 1000,2200 GLO Administration Dextrose/Sodium Chloride 1,000 mls @ 75 mls/hr 12/14/20 00:15 12/16/20 09:03 D5 0.9% Ns IV 1,000 mls .[id number] GLO Administration Potassium Chloride 20 meq/ 100 mls @ 50 mls/hr 12/16/20 08:00 12/16/20 09:37 Device IVPB 12/16/20 11:59 100 mls Q2H GLO Administration Lorazepam 2 mg 12/09/20 14:00 12/16/20 03:57 Lorazepam 2 Mg/Ml Vial SLOW IVP 01/08/21 14:00 2 mg Q1H PRN Administration Breakthrough agitation Mometasone Furoate/Formoterol Fumar 2 puff 12/09/20 18:30 12/16/20 07:19 Mometasone 200 Mcg/Formoterol 5 Mcg 120 Puff Inhaler INH 2 puff BID-RT GLO Administration Pantoprazole Sodium 40 mg 12/15/20 09:00 12/16/20 09:22 Pantoprazole 40 Mg Granules Packet PER TUBE 40 mg BID GLO Administration Propofol 1,000 mg 12/09/20 14:00 12/16/20 10:03 Propofol 1,000 Mg/100 Ml Vial IV 01/08/21 14:00 1,000 mg INF PRN Administration TO ACHIEVE GOAL RASS Protocol Sodium Chloride 10 ml 12/11/20 21:00 12/15/20 21:50 Flush - Normal Saline 10 Ml Syringe IVF 10 ml Q12HR GLO Administration Vecuronium [place] 10 mg 12/09/20 20:15 12/16/20 03:57 Vecuronium 10 Mg Vial IV 10 mg Q1H PRN Administration Agitation Zinc Sulfate 220 mg 12/15/20 09:00 12/16/20 09:22 Zinc Sulfate 220 Mg Cap PER TUBE 220 mg DAILY GLO Administration Hospitalist Exam Vitals: Vital Signs (12 hours) Temp Pulse Resp BP 12/16/20 07:19 107 H 160/88 H 12/16/20 06:00 14 12/16/20 04:00 96.7 F L 35 H 12/16/20 02:46 88 12/16/20 02:00 28 H 12/16/20 00:00 97.7 F 14 12/15/20 22:37 86 Weight Admit Weight 132 lb Weight 2.104 oz Most Recent Monitor Data Heart Rate from ECG 111 NIBP 148/81 NIBP BP-Mean 103 Respiration from ECG 21 SpO2 91 Eye: PERRL, anicteric sclera Heart: RRR, no murmur, no gallops, no rubs, normal peripheral pulses Respiratory: CTAB, no wheezes, no rales, no ronchi, normal chest expansion Gastrointestinal: soft, non-tender, non-distended, normal bowel sounds, no palpable masses, no hepatomegaly Extremities: no cyanosis (palpable pulses, no lesions), 1+ LE edema Hosp A/P (1) Acute respiratory failure with hypoxia Code(s): J96.01 - ACUTE RESPIRATORY FAILURE WITH HYPOXIA Status: Acute (2) Pneumonia due to COVID-19 virus Code(s): U07.1 - COVID-19; J12.82 - PNEUMONIA DUE TO CORONAVIRUS DISEASE 2019 Status: Acute (3) SYLVAIN (acute kidney injury) Code(s): N17.9 - ACUTE KIDNEY FAILURE, UNSPECIFIED Status: Acute (4) Hypokalemia Code(s): E87.6 - HYPOKALEMIA Status: Acute - Plan * Acute respiratory failure with hypoxemia- Continue Decadron and Colchicine * Continue ventilatory support * Acute kidney disease- - she had marginal urine output- will give a fluid bolus and re-assess * Her blood pressure has been adequate * Convalescent plasma has been given * Hypokalemia- continue to replace
[2020-12-16] MEDS ORDERED: Sodium Chloride 0.9% 500 ML IV SCH (10:30)
--- NOTE | 2020-12-16 11:06 | RAD ---
SINGLE VIEW CHEST: Date: 12/16/2020 HISTORY: Ventilated patient with respiratory failure. FINDINGS: Single view of the chest shows normal sized cardiomediastinal silhouette. The lines and tubes are unc hanged in position. Scattered multifocal infiltrates are seen in the lungs. There has been worsening of the left-sided infiltrate compared to the prior exam. IMPRESSION: Worsening multifocal pneumonia. POS: EAA
--- NOTE | 2020-12-16 17:41 | PRG ---
DATE OF SERVICE: 12/16/2020 TIME: 03:15 p.m. SUBJECTIVE: For 24 hours, the patient had a change in her respiratory status. This morning, respiratory rate up in the 40s, was hypertensive and tachycardic, was not getting a volume. She is on bilevel at the time of and saturations were in the 80s on 70%. Ventilator was changed to assist control/pressure control. She was tolerating pressure control of 30 with a PEEP of 13 and FiO2 was increased to 75%. Saturations improved to 90% to 93% and respiratory rate improved to 22. She was noted to have no other significant changes. I's and O's have been primarily in the positive range and the rest of her vitals are reviewed. The patient remains intubated and mechanically ventilated. She is unable to answer any questions. She is sedated on propofol. Her last dose of vecuronium on 12/14/2020. OBJECTIVE: VITAL SIGNS: Blood pressure 118/83, heart rate of 96, respirations of 24, and saturations of 98% now. She is receiving D5 at 75 mL/hour in addition to propofol and gastric feedings at 22. Urine output is approximately 50 to 55 mL/hour. GENERAL: She is sedated. HEENT: Pupils are 3 mm and reactive. She is orally intubated with orogastric tube. NECK: Supple. There is no evidence of subcutaneous emphysema. LUNGS: Breath sounds are coarse bilaterally with rhonchi. CARDIAC: Regular rate and rhythm. ABDOMEN: Soft, benign without hepatosplenomegaly, bruits, masses, rebound or guarding. EXTREMITIES: Without cyanosis. There is trace edema noted. IMAGING DATA: Chest x-ray shows slight progression of left-sided infiltrates. LABORATORY DATA: CBC: White count is having elevated at 17.2 with 82% segs, 10 bands, 6 lymphs. Chemistry shows a sodium of 139, potassium of 3.1, chloride 108, bicarbonate of 22, BUN of 20, creatinine of 0.5, calcium is 7.6, magnesium 1.9. Micro shows no blood growth from 12/09/2020. Negative urine from 12/09/2020. MEDICATIONS: She is continuing on, 1. Decadron 6 mg daily. 2. Pantoprazole. 3. Colchicine. 4. Vitamin C. IMPRESSION: 1. Respiratory failure, hypoxemic. 2. COVID-19 pneumonia with progressive infiltrates. 3. Mild volume overload. 4. Hypokalemia. 5. Sepsis with possible secondary opportunistic infection. PLAN: 1. Electrolyte replacement. 2. Once electrolytes are replaced, we will start diuresis with loop diuretic. 3. Continue IV steroids. 4. Cultures of blood, urine and sputum. 5. Begin cefepime and imipenem. 6. Change bronchodilators to beclomethasone nebs. 7. Check galactomannan. 8. Check procalcitonin. 9. Continue enoxaparin. The patient is not near any chance of weaning from the ventilator at this time. Critical care time at bedside exceeds 40 minutes. Job ID: [id number]
[2020-12-16] MEDS: Atorvastatin Calcium 40 MG TAB PO SCH (19:37)
[2020-12-16] MEDS: Budesonide 0.5 MG/2 ML NEB NEB SCH (19:50)
[2020-12-17] MEDS ORDERED: Sterile Water 10 ML ONE (01:04)
[2020-12-17] MEDS: Vecuronium 10 MG VIAL IV PRN (01:09)
[2020-12-17] MEDS: Lorazepam 2 MG/ML VIAL SLOW IVP PRN ×2 (02:23→11:30)
[2020-12-17] MEDS: Morphine 2 MG/ML VIAL SLOW IVP PRN ×2 (02:23→09:47)
[2020-12-17] MEDS: Propofol 1,000 MG/100 ML VIAL IV PRN (02:46)
[2020-12-17 05:43] LABS: Anion Gap 11 mmol/L (10-20); BUN (Urea Nitrogen) 21 mg/dL (9.8-20.1); Calc. Creatinine Clearance 0 mL/min (70-130); Calcium 7.1 mg/dL (7.8-10.44); Carbon Dioxide 20 mmol/L (23-31); Chloride 112 mmol/L (98-107); Glucose 172 mg/dL (80-115); Potassium 3.5 mmol/L (3.5-5.1); Sodium 139 mmol/L (136-145)
[2020-12-17 05:58] LABS: Band 17 % (5-11); Eosinophils 2 % (0-10); Hemoglobin 9.5 g/dL (12.0-16.0); Lymphocytes 10 % (21-51); MDiff Complete? YES; Mean Corpuscular HGB CONC 33.9 g/dL (32.0-36.0); Mean Corpuscular Hemoglobin 30.3 pg (27.0-31.0); Mean Corpuscular Volume 89.6 fL (78.0-98.0); Mean Platelet Volume 8.3 fL (7.4-10.4); Monocytes 2 % (0-10); Neutrophil 69 % (42-75); Platelet Count 195 thou/uL (130-400); RBC Distribution Width 13.2 % (11.5-14.5); Red Blood Cell (RBC) Count 3.13 mill/uL (4.20-5.40); White Blood Cell (WBC) Count 14.7 thou/uL (4.8-10.8)
[2020-12-17] MEDS: Budesonide 0.5 MG/2 ML NEB NEB SCH ×2 (08:18→19:48)
--- NOTE | 2020-12-17 08:27 | PDOC.PULCC ---
CCU Progress Note: Subj/Obj - Subjective Date: 12/17/20 Time: 08:05 Narrative: remains critically ill sedated on mechanical ventilator - Objective Allergies/Adverse Reactions: Allergies Allergy/AdvReac Type Severity Reaction Status Date / Time No Known Allergies Allergy Unverified 12/09/20 12:28 Medications: Current Medications Ascorbic Acid (Ascorbic Acid 500 Mg Chewable Tablet) 1,000 mg PER TUBE DAILY [facility] Last Admin: 12/16/20 09:22 Dose: 1,000 mg Documented by: Atorvastatin Calcium (Atorvastatin Calcium 40 Mg Tab) 40 mg PO HS [facility] Last Admin: 12/16/20 19:37 Dose: 40 mg Documented by: Budesonide (Budesonide 0.5 Mg/2 Ml Neb) 0.5 mg NEB BID-RT [facility] Last Admin: 12/16/20 19:50 Dose: 0.5 mg Documented by: Colchicine (Colchicine 0.6 Mg Tab) 0.6 mg PO BID [facility] Last Admin: 12/16/20 19:37 Dose: 0.6 mg Documented by: Dexamethasone (Dexamethasone 4 Mg/Ml Vial) 6 mg SLOW IVP DAILY [facility] Last Admin: 12/16/20 09:21 Dose: 6 mg Documented by: Enoxaparin Sodium (Enoxaparin Sodium 60 Mg/0.6 Ml Syringe) 60 mg SC 0900,2100 [facility] Last Admin: 12/16/20 19:38 Dose: 60 mg Documented by: Hydralazine HCl (Hydralazine 20 Mg/Ml Vial) 10 mg SLOW IVP Q4H PRN PRN Reason: SBP Greater Than 180 Last Admin: 12/15/20 02:05 Dose: 10 mg Documented by: Fentanyl (Fentanyl Cadd) 100 mls @ 0 mls/hr IV INF [facility]; Protocol Stop: 01/08/21 14:00 Fentanyl Citrate (Fentanyl Bolus) 250 mls @ 0 mls/hr IVPB PRN PRN PRN Reason: Breakthrough pain/agitation Stop: 01/08/21 14:00 Cefepime HCl 2 gm/ Sodium (Chloride) 100 mls @ 200 mls/hr IVPB 1000,2200 [facility] Last Admin: 12/16/20 23:15 Dose: 100 mls Documented by: Dextrose/Sodium Chloride (D5 0.9% Ns) 1,000 mls @ 75 mls/hr IV .[id number] [facility] Last Admin: 12/16/20 23:28 Dose: 1,000 mls Documented by: Lorazepam (Lorazepam 2 Mg/Ml Vial) 2 mg SLOW IVP Q1H PRN PRN Reason: Breakthrough agitation Stop: 01/08/21 14:00 Last Admin: 12/17/20 02:23 Dose: 2 mg Documented by: Miscellaneous Medication (Electrolyte Replacement Protocol) 0 each FS ASDIR PRN; Protocol PRN Reason: ELECTROLYTE REPLACEMENT Morphine Sulfate (Morphine 2 Mg/Ml Vial) 2 mg SLOW IVP Q1H PRN PRN Reason: Breakthrough Pain/Agitation Stop: 01/08/21 14:00 Last Admin: 12/17/20 02:23 Dose: 2 mg Documented by: Discontinue Previous Narcotic Pain Medications And Benzodiazepines 1 each FS .ONE [facility] Stop: 01/08/21 14:00 Pantoprazole Sodium (Pantoprazole 40 Mg Granules Packet) 40 mg PER TUBE BID [facility] Last Admin: 12/16/20 19:37 Dose: 40 mg Documented by: Propofol (Propofol 1,000 Mg/100 Ml Vial) 1,000 mg IV INF PRN; Protocol PRN Reason: TO ACHIEVE GOAL RASS Stop: 01/08/21 14:00 Last Admin: 12/17/20 02:46 Dose: 1,000 mg Documented by: Propofol (Propofol Bolus 1,000 Mg/100 Ml Vial) 20 mg IV Q5MIN PRN PRN Reason: BREAKTHROUGH AGITATION Stop: 01/08/21 14:00 Sodium Chloride (Sodium Chloride 0.9% (Pf) 10 Ml Vial) 10 ml FS PRN PRN PRN Reason: RECONSTITUTION Sodium Chloride (Flush - Normal Saline 10 Ml Syringe) 10 ml IVF Q12HR [facility] Last Admin: 12/16/20 19:38 Dose: 10 ml Documented by: Sodium Chloride (Flush - Normal Saline 10 Ml Syringe) 10 ml IVF PRN PRN PRN Reason: Saline Flush Vecuronium [place] (Vecuronium 10 Mg Vial) 10 mg IV Q1H PRN PRN Reason: Agitation Last Admin: 12/17/20 01:09 Dose: 10 mg Documented by: Zinc Sulfate (Zinc Sulfate 220 Mg Cap) 220 mg PER TUBE DAILY [facility] Last Admin: 12/16/20 09:22 Dose: 220 mg Documented by: PAT Reviewed: Yes Vital Signs and I&O: Vital Signs Temp 99.1 F 12/17/20 04:00 Pulse 113 H 12/17/20 02:59 Resp 28 H 12/17/20 07:54 BP 118/83 12/16/20 15:32 Pulse Ox 95 12/16/20 20:00 Intake & Output 12/16/20 12/17/20 12/17/20 18:59 06:59 18:59 Intake Total 100 879 Output Total 520 535 50 Balance -420 344 -50 Weight 133 lb 6.075 oz Intake: Intake, IV Amount 100 236 Cefepime 2 gm In Sodium 100 100 Chloride 0.9% 100 ml @ 200 mls/hr IVPB 1000,2200 GLO Rx#:[id number] Propofol 1000 mg (See 136 Protocol) IV INF PRN Rx#: [id number] Oral Supplement 120 Tube Feeding 243 Tube Irrigant 280 Output: Output, [place] 520 535 50 Other: Voiding Method Indwelling Catheter Indwelling Catheter # Bowel Movements 1 Vent Setting: Changed 12/16 from bilevel which was not tolerated with RR in 40's, to AC PC 30/12, tidal volumes over 500 so today reduce PC to 28 and increase fio2 to 75% as her sats are borderline CCU Progress Note: Exam - Physical Exam Deviation from normal: sedated well HEENT: PERRLA Deviation from normal: oral ETT og tube Neck: no JVD, supple Cardiovascular: RRR, no significant murmur, no rub Respiratory: rhonchi Focused Respiratory Location: decreased breath sounds: Left, Lower, rales: Right, Lower Gastrointestinal: soft, non-tender Musculoskeletal: edema present Deviation from normal: sedated due to hi peep and fio2 Deviation from normal: sedated Skin: no rash CCU Progress Note: Data - Labs Result Diagrams: 12/17/20 05:00 12/17/20 05:00 Lab results: Laboratory Results 12/15/20 12/16/20 12/16/20 12:53 05:50 05:50 WBC 15.6 H RBC 4.04 L Hgb 12.1 Hct 36.6 MCV 90.6 MCH 30.0 MCHC 33.1 RDW 13.2 Plt Count 199 MPV 7.5 Neutrophils % (Manual) 84 H Band Neuts % (Manual) 7 Lymphocytes % (Manual) 7 L Monocytes % (Manual) 1 Eosinophils % (Manual) Myelocytes % 1 H Sodium 139 Potassium 3.1 L Chloride 108 H Carbon Dioxide 22 L Anion Gap 12 BUN 20 Creatinine 0.52 L Estimated GFR (MDRD) Greater than 90 Glucose 160 H Calcium 7.6 L Magnesium 1.9 Blood Type B POSITIVE Antibody Screen NEGATIVE 12/17/20 12/17/20 05:00 05:00 WBC 14.7 H RBC 3.13 L Hgb 9.5 L Hct 28.0 L MCV 89.6 MCH 30.3 MCHC 33.9 RDW 13.2 Plt Count 195 MPV 8.3 Neutrophils % (Manual) 69 Band Neuts % (Manual) 17 H Lymphocytes % (Manual) 10 L Monocytes % (Manual) 2 Eosinophils % (Manual) 2 Myelocytes % Sodium 139 Potassium 3.5 Chloride 112 H Carbon Dioxide 20 L Anion Gap 11 BUN 21 H Creatinine 0.54 L Estimated GFR (MDRD) Greater than 90 Glucose 172 H Calcium 7.1 L Magnesium Blood Type Antibody Screen - ABG Interpretation ABG Results: ABG pH 7.52 (7.35-7.45) H 12/10/20 07:15 ABG pCO2 29.6 mmHg (35.0-45.0) L 12/10/20 07:15 ABG Base Excess 1.6 mEq/L (-2.0 to +3.0) 12/10/20 07:15 - Radiology Interpretation Chest x-ray Status: image reviewed by me Additional comments: ETT is at the thoracic inlet, ordered to advance 2.5 cm, bilateral pleural effusions and infiltrates. CCU Progress Note: A/P - Problems (1) Acute respiratory failure with hypoxia Current Visit: Yes Status: Acute Code(s): J96.01 - ACUTE RESPIRATORY FAILURE WITH HYPOXIA Assessment and Plan: ventilator dependent with high oxygen requirements COVID 19 pneumonia Positive i/o and edema suggestive of pulmonary edema that can respond to diuretics, lasix ordered Ventilator set AC PC which is tolerated better than bilevel ABG today as her chemistries show low bicarb, is she overventilated? tracheal aspirate cultures ordered today (2) Sepsis Current Visit: Yes Status: Acute Code(s): A41.9 - SEPSIS, UNSPECIFIED ORGANISM Qualifiers: Sepsis type: sepsis due to unspecified organism Sepsis acute organ dysfun ction status: with acute organ dysfunction Severe sepsis acute organ dysf unction type: acute respiratory failure Acute respiratory failure type: with hypoxia - Time Spent with Patient Time: 50% of the time was spent in coordination of care (as documented) (bedside care and follow up, coordination of care with RT and RN, Call to family) - Plan Plan: WBC has remained elevated Leukocytosis with left shift until today Repeat CBC today due to variation from usual cultures of blood, urine and tracheal aspirate ordered today begin cefepime and vanco until cultures return high risk of nosocomial opportunitic infection due to steroids, prolonged icu care try to avoid propofol floraster Anemia Acute decrease in Hgb on full dose anticoagulation Have reordered CBC No evidence on exam of bleeding Metabolic acidosis ABG ordered
[2020-12-17] MEDS ORDERED: Furosemide 40 MG/4 ML VIAL SLOW IVP SCH (08:29)
[2020-12-17 08:41] LABS: Actual Bicarbonate (HCO3a) 18.7 mEq/L (22-28); Base Excess (BEa) -3.6 mEq/L (-2.0 to +3.0); CO2 Tension 26.1 mmHg (35.0-45.0); Calcium, Ionized (arterial) 1.09 mmol/L (1.12-1.30); Hemoglobin (Hb) 11.3 g/dL (12.0-16.0); Potassium - ABG Lab 3.36 mmol/L (3.70-5.30); pH, Arterial 7.47 (7.35-7.45)
[2020-12-17 08:43] LABS: #Basophils 0.1 thou/uL (0.0-0.2); #Eosinphils 0.2 thou/uL (0.0-0.7); #Lymphocytes 0.9 thou/uL (1.20-3.40); #Monocytes 0.2 thou/uL (0.11-0.59); #Neutrophils 14.8 thou/uL (1.40-6.50); %Basophils 0.5 % (0.0-1.0); %Eosinophils 1.3 % (0.0-10.0); %Lymphocytes 5.3 % (21.0-51.0); %Monocytes 1.5 % (0.0-10.0); %Neutrophils 91.4 % (42.0-75.0); Hemoglobin 10.4 g/dL (12.0-16.0); Mean Corpuscular HGB CONC 33.8 g/dL (32.0-36.0); Mean Corpuscular Hemoglobin 30.8 pg (27.0-31.0); Mean Corpuscular Volume 90.9 fL (78.0-98.0); Mean Platelet Volume 7.8 fL (7.4-10.4); Platelet Count 197 thou/uL (130-400); RBC Distribution Width 13.2 % (11.5-14.5); Red Blood Cell (RBC) Count 3.39 mill/uL (4.20-5.40); White Blood Cell (WBC) Count 16.2 thou/uL (4.8-10.8)
[2020-12-17 08:43] LABS: O2 Tension (PaO2), arterial 41.5 mmHg (> 80.0)
[2020-12-17 08:44] LABS: Puncture Site RRA
[2020-12-17 08:45] LABS: ALV-art Gradient 496.275 mmHg (0-20)
[2020-12-17] MEDS ORDERED: Potassium Chloride 40 MEQ in Sodium Chloride 0.9% 250 ML 250 ML IVPB SCH (09:45)
[2020-12-17] MEDS: Dexamethasone 4 mg/ml Vial SLOW IVP SCH (09:47)
[2020-12-17] MEDS: Pantoprazole 40 MG GRANULES PACKET PER TUBE SCH ×2 (09:51→22:11)
[2020-12-17] MEDS: Enoxaparin Sodium 60 MG/0.6 ML SYRINGE SC SCH ×2 (09:51→22:11)
[2020-12-17] MEDS: Zinc Sulfate 220 MG CAP PER TUBE SCH (09:51)
[2020-12-17] MEDS: Ascorbic Acid 500 mg Chewable Tablet PER TUBE SCH (09:51)
[2020-12-17] MEDS: MEROPENEM 1 GM/50 ML 1 GM in Premix Bag 1 BAG IVPB SCH ×2 (10:26→17:34)
[2020-12-17] MEDS: Vancomycin HCl 750 MG in Sodium Chloride 0.9% 250 ML 250 ML IVPB SCH ×2 (10:26→22:19)
--- NOTE | 2020-12-17 10:28 | RAD ---
Exam: Chest one view HISTORY:Respiratory distress. Ventilated patient. Comparison: 12/16/2020 FINDINGS: Lines and tubes: Stable endotracheal tube, nasogastric tube and left-sided vascular catheter. Cardiac silhouette:Normal cardiac silhouette. Aorta: Unremarkable Pulmonary vessels: Normal Costophrenic angles: Clear LUNGS: Persistent and stable multifocal interstitial and alveolar opacities. Pneumothorax: None Osseous abnormalities: None IMPRESSION: Stable multi lobar pneumonia.
--- NOTE | 2020-12-17 11:21 | PDOC.HOSPP ---
- Subjective Encounter Date: 12/17/20 Encounter Time: 11:11 Subjective: Ms. Lowry was seen today in follow-up of COVID pneumonia and respiratory failure. She is intubated and sedated. He ventilator setting have been changed from BiLevel, to AC. - Objective Vital Signs & Weight: Vital Signs (12 hours) Temp Pulse Resp BP 12/17/20 11:09 131 H 144/99 H 12/17/20 07:59 113 H 12/17/20 07:54 28 H 12/17/20 06:00 20 12/17/20 04:00 99.1 F 14 12/17/20 02:59 113 H 12/17/20 02:00 14 12/17/20 01:17 113 H 12/17/20 00:00 99.0 F 14 Weight Admit Weight 132 lb Weight 133 lb 6.075 oz Most Recent Monitor Data Heart Rate from ECG 117 NIBP 154/93 NIBP BP-Mean 113 Respiration from ECG 36 SpO2 92 I&O: 12/16/20 12/17/20 12/18/20 06:59 06:59 06:59 Intake Total 1885 979 Output Total 1245 1055 50 Balance 640 -76 -50 Result Diagrams: 12/17/20 08:31 12/17/20 05:00 Hospitalist ROS - Medication Medications: Active Medications Generic Name Dose Route Start Last Admin Trade Name Freq PRN Reason Stop Dose Admin Ascorbic Acid 1,000 mg 12/15/20 09:00 12/17/20 09:51 Ascorbic Acid 500 Mg Chewable Tablet PER TUBE 1,000 mg DAILY GLO Administration Atorvastatin Calcium 40 mg 12/09/20 21:00 12/16/20 19:37 Atorvastatin Calcium 40 Mg Tab PO 40 mg HS GLO Administration Budesonide 0.5 mg 12/16/20 18:30 12/17/20 08:18 Budesonide 0.5 Mg/2 Ml Neb NEB 0.5 mg BID-RT GLO Administration Colchicine 0.6 mg 12/09/20 21:00 12/16/20 19:37 Colchicine 0.6 Mg Tab PO 0.6 mg BID GLO Administration Dexamethasone 6 mg 12/10/20 09:00 12/17/20 09:47 Dexamethasone 4 Mg/Ml Vial SLOW IVP 6 mg DAILY GLO Administration Enoxaparin Sodium 60 mg 12/09/20 21:00 12/17/20 09:51 Enoxaparin Sodium 60 Mg/0.6 Ml Syringe SC 60 mg 0900,2100 GLO Administration Furosemide 40 mg 12/17/20 08:29 12/17/20 09:47 Furosemide 40 Mg/4 Ml Vial SLOW IVP 12/17/20 12:00 40 mg NOW GLO Administration Hydralazine HCl 10 mg 12/15/20 01:39 12/15/20 02:05 Hydralazine 20 Mg/Ml Vial SLOW IVP 10 mg Q4H PRN Administration SBP Greater Than 180 Dextrose/Sodium Chloride 1,000 mls @ 75 mls/hr 12/14/20 00:15 12/16/20 23:28 D5 0.9% Ns IV 1,000 mls .[id number] GLO Administration Meropenem 1 gm/ Device 50 mls @ 100 mls/hr 12/17/20 09:00 12/17/20 10:26 IVPB 50 mls 0100,0900,1700 GLO Administration Vancomycin HCl 750 mg/ Sodium 250 mls @ 250 mls/hr 12/17/20 09:00 12/17/20 10:26 Chloride IVPB 250 mls Q12HR GLO Administration Potassium Chloride 40 meq/ 270 mls @ 67.5 mls/hr 12/17/20 09:45 12/17/20 10:11 Sodium Chloride IVPB 12/17/20 13:44 270 mls NOW GLO Administration Lorazepam 2 mg 12/09/20 14:00 12/17/20 02:23 Lorazepam 2 Mg/Ml Vial SLOW IVP 01/08/21 14:00 2 mg Q1H PRN Administration Breakthrough agitation Morphine Sulfate 2 mg 12/09/20 14:00 12/17/20 09:47 Morphine 2 Mg/Ml Vial SLOW IVP 01/08/21 14:00 2 mg Q1H PRN Administration Breakthrough Pain/Agitation Pantoprazole Sodium 40 mg 12/15/20 09:00 12/17/20 09:51 Pantoprazole 40 Mg Granules Packet PER TUBE 40 mg BID GLO Administration Sodium Chloride 10 ml 12/11/20 21:00 12/17/20 09:54 Flush - Normal Saline 10 Ml Syringe IVF 10 ml Q12HR GLO Administration Sodium Chloride 10 ml 12/11/20 13:45 12/17/20 09:53 Flush - Normal Saline 10 Ml Syringe IVF 10 ml PRN PRN Administration Saline Flush Vecuronium [place] 10 mg 12/09/20 20:15 12/17/20 01:09 Vecuronium 10 Mg Vial IV 10 mg Q1H PRN Administration Agitation Zinc Sulfate 220 mg 12/15/20 09:00 12/17/20 09:51 Zinc Sulfate 220 Mg Cap PER TUBE 220 mg DAILY GLO Administration Hospitalist Exam Vitals: Vital Signs (12 hours) Temp Pulse Resp BP 12/17/20 11:09 131 H 144/99 H 12/17/20 07:59 113 H 12/17/20 07:54 28 H 12/17/20 06:00 20 12/17/20 04:00 99.1 F 14 12/17/20 02:59 113 H 12/17/20 02:00 14 12/17/20 01:17 113 H 12/17/20 00:00 99.0 F 14 Weight Admit Weight 132 lb Weight 133 lb 6.075 oz Most Recent Monitor Data Heart Rate from ECG 117 NIBP 154/93 NIBP BP-Mean 113 Respiration from ECG 36 SpO2 92 Eye: PERRL, anicteric sclera Heart: RRR, no murmur, no gallops, no rubs, normal peripheral pulses Respiratory: rales Gastrointestinal: soft, non-tender, non-distended, normal bowel sounds, no palpable masses, no hepatomegaly Extremities: no cyanosis, no edema (+ good distal pulses) Hosp A/P (1) Acute respiratory failure with hypoxia Code(s): J96.01 - ACUTE RESPIRATORY FAILURE WITH HYPOXIA Status: Acute (2) Pneumonia due to COVID-19 virus Code(s): U07.1 - COVID-19; J12.82 - PNEUMONIA DUE TO CORONAVIRUS DISEASE 2019 Status: Acute (3) SYLVAIN (acute kidney injury) Code(s): N17.9 - ACUTE KIDNEY FAILURE, UNSPECIFIED Status: Acute (4) Hypokalemia Code(s): E87.6 - HYPOKALEMIA Status: Acute - Plan * Acute respiratory failure with hypoxemia- Continue Decadron and Colchicine * Her Ventilator mode of ventilation was changed to AC, and she appears to be tolerating this better * Acute kidney disease- - urine output has improved. her creatinine has remained stable * Heart heart rate is elevated, and has an elevated WBC count- agree with re- culture, and empiric antibiotics ( Meropenem and Vancomycin ) * Her blood pressure has been adequate * Hypokalemia- improved * H&H is stable * Tolerating tube feeds * She is on Lovenox and Protonix for DVT and GI Prophylaxis
[2020-12-17] MEDS: Colchicine 0.6 MG TAB PO SCH ×2 (12:14→22:16)
[2020-12-17] MEDS: Dextrose 5 % And 0.9 % NaCl 1,000 ML IV SCH ×2 (12:15→15:42)
[2020-12-17] MEDS: Furosemide 40 MG/4 ML VIAL SLOW IVP SCH (14:57)
[2020-12-17] MEDS: Atorvastatin Calcium 40 MG TAB PO SCH (22:11)
[2020-12-18] MEDS: Budesonide 0.5 MG/2 ML NEB NEB SCH ×2 (07:50→18:30)
[2020-12-18] MEDS: Zinc Sulfate 220 MG CAP PER TUBE SCH (09:00)
[2020-12-18] MEDS: Dexamethasone 4 mg/ml Vial SLOW IVP SCH (09:00)
[2020-12-18] MEDS: Pantoprazole 40 MG GRANULES PACKET PER TUBE SCH ×2 (09:00→19:44)
[2020-12-18] MEDS: MEROPENEM 1 GM/50 ML 1 GM in Premix Bag 1 BAG IVPB SCH ×3 (09:00→19:34)
[2020-12-18] MEDS: Ascorbic Acid 500 mg Chewable Tablet PER TUBE SCH (09:00)
[2020-12-18] MEDS: Colchicine 0.6 MG TAB PO SCH ×2 (09:00→19:44)
[2020-12-18] MEDS: Enoxaparin Sodium 60 MG/0.6 ML SYRINGE SC SCH ×2 (09:00→19:44)
[2020-12-18] MEDS: Vancomycin HCl 750 MG in Sodium Chloride 0.9% 250 ML 250 ML IVPB SCH ×2 (09:41→22:25)
[2020-12-18] MEDS ORDERED: Ascorbic Acid 500 mg Chewable Tablet ONE (09:50)
[2020-12-18] MEDS ORDERED: Enoxaparin Sodium 60 MG/0.6 ML SYRINGE ONE (09:50)
[2020-12-18] MEDS ORDERED: Vancomycin HCl 750 MG VIAL ONE (09:50)
[2020-12-18] MEDS ORDERED: Zinc Sulfate 220 MG CAP ONE (09:50)
[2020-12-18] MEDS ORDERED: Colchicine 0.6 MG TAB ONE (09:50)
[2020-12-18] MEDS ORDERED: Dexamethasone 4 mg/ml Vial ONE (09:50)
[2020-12-18] MEDS ORDERED: Sodium Chloride 0.9% 250 Advantage ONE (09:50)
[2020-12-18] MEDS ORDERED: MEROPENEM 1 GM/50 ML BAG ONE (09:55)
--- NOTE | 2020-12-18 11:20 | RAD ---
EXAM: CHEST ONE VIEW HISTORY: On ventilator. Follow-up evaluation for COMPARISON: 12/17/2020 FINDINGS: Endotracheal tube, nasogastric tube, and left-sided vascular catheter remain in place and unchanged i n position. Cardiac silhouette is within normal limits. Increased interstitial and alveolar opacities are again seen diffusely throughout the lungs bilaterally not significantly changed from pr ior exam. There is greater increased opacity at the left lung base, and associated left pleural effusion is suggested. No other interval change. IMPRESSION: Stable multifocal pneumonia with suggestion of small left pleural effusion.
[2020-12-18] MEDS ORDERED: Potassium Bicarbonate/Cit Ac 20 MEQ TAB PER TUBE SCH (13:30)
[2020-12-18] MEDS: Furosemide 40 MG/4 ML VIAL SLOW IVP SCH ×2 (14:00→19:34)
--- NOTE | 2020-12-18 14:19 | PDOC.HOSPP ---
- Subjective Encounter Date: 12/18/20 Encounter Time: 14:17 Subjective: Ms. Lowry was seen today in follow-up of COVID pneumonia and respiratory failure. She is intubated. She appears comfortable. No complaints voiced by staff. - Objective Vital Signs & Weight: Weight Admit Weight 132 lb Weight 133 lb 6.075 oz Most Recent Monitor Data Heart Rate from ECG 117 NIBP 121/78 NIBP BP-Mean 92 Respiration from ECG 30 SpO2 95 I&O: 12/17/20 12/18/20 12/19/20 06:59 06:59 06:59 Intake Total 979 506 Output Total 1059 4410 Balance -60 -9988 Result Diagrams: 12/17/20 08:31 12/17/20 05:00 Hospitalist ROS - Medication Medications: Active Medications Generic Name Dose Route Start Last Admin Trade Name Freq PRN Reason Stop Dose Admin Ascorbic Acid 1,000 mg 12/15/20 09:00 12/17/20 09:51 Ascorbic Acid 500 Mg Chewable Tablet PER TUBE 1,000 mg DAILY GLO Administration Atorvastatin Calcium 40 mg 12/09/20 21:00 12/17/20 22:11 Atorvastatin Calcium 40 Mg Tab PO 40 mg HS GLO Administration Budesonide 0.5 mg 12/16/20 18:30 12/17/20 19:48 Budesonide 0.5 Mg/2 Ml Neb NEB 0.5 mg BID-RT GLO Administration Colchicine 0.6 mg 12/09/20 21:00 12/17/20 22:16 Colchicine 0.6 Mg Tab PO 0.6 mg BID GLO Administration Dexamethasone 6 mg 12/10/20 09:00 12/17/20 09:47 Dexamethasone 4 Mg/Ml Vial SLOW IVP 6 mg DAILY GLO Administration Enoxaparin Sodium 60 mg 12/09/20 21:00 12/17/20 22:11 Enoxaparin Sodium 60 Mg/0.6 Ml Syringe SC 60 mg 0900,2100 GLO Administration Furosemide 40 mg 12/17/20 14:00 12/17/20 14:57 Furosemide 40 Mg/4 Ml Vial SLOW IVP 12/19/20 08:00 40 mg 0600,1400 GLO Administration Hydralazine HCl 10 mg 12/15/20 01:39 12/15/20 02:05 Hydralazine 20 Mg/Ml Vial SLOW IVP 10 mg Q4H PRN Administration SBP Greater Than 180 Dextrose/Sodium Chloride 1,000 mls @ 75 mls/hr 12/14/20 00:15 12/17/20 15:42 D5 0.9% Ns IV 1,000 mls .[id number] GLO Administration Midazolam HCl 100 mls @ 0 mls/hr 12/17/20 08:45 12/17/20 10:14 Versed IVPB 100 mls INF GLO Administration Protocol Titrate Meropenem 1 gm/ Device 50 mls @ 100 mls/hr 12/17/20 09:00 12/17/20 17:34 IVPB 50 mls 0100,0900,1700 GLO Administration Vancomycin HCl 750 mg/ Sodium 250 mls @ 250 mls/hr 12/17/20 09:00 12/17/20 22:19 Chloride IVPB 250 mls Q12HR GLO Administration Lorazepam 2 mg 12/09/20 14:00 12/17/20 11:30 Lorazepam 2 Mg/Ml Vial SLOW IVP 01/08/21 14:00 2 mg Q1H PRN Administration Breakthrough agitation Morphine Sulfate 2 mg 12/09/20 14:00 12/17/20 09:47 Morphine 2 Mg/Ml Vial SLOW IVP 01/08/21 14:00 2 mg Q1H PRN Administration Breakthrough Pain/Agitation Pantoprazole Sodium 40 mg 12/15/20 09:00 12/17/20 22:11 Pantoprazole 40 Mg Granules Packet PER TUBE 40 mg BID GLO Administration Sodium Chloride 10 ml 12/11/20 21:00 12/17/20 22:12 Flush - Normal Saline 10 Ml Syringe IVF 10 ml Q12HR GLO Administration Sodium Chloride 10 ml 12/11/20 13:45 12/17/20 09:53 Flush - Normal Saline 10 Ml Syringe IVF 10 ml PRN PRN Administration Saline Flush Vecuronium [place] 10 mg 12/09/20 20:15 12/17/20 01:09 Vecuronium 10 Mg Vial IV 10 mg Q1H PRN Administration Agitation Zinc Sulfate 220 mg 12/15/20 09:00 12/17/20 09:51 Zinc Sulfate 220 Mg Cap PER TUBE 220 mg DAILY GLO Administration Hospitalist Exam Vitals: Weight Admit Weight 132 lb Weight 133 lb 6.075 oz Most Recent Monitor Data Heart Rate from ECG 117 NIBP 121/78 NIBP BP-Mean 92 Respiration from ECG 30 SpO2 95 General Appearance: NAD Eye: PERRL, anicteric sclera Heart: RRR, no murmur, no gallops, no rubs, normal peripheral pulses Respiratory: no wheezes, no ronchi, rales (at the bases) Gastrointestinal: soft, non-tender, non-distended, normal bowel sounds, no palpable masses, no hepatomegaly Extremities: no cyanosis (+ d.p. pulses bilaterally, no lesions), no edema Hosp A/P (1) Acute respiratory failure with hypoxia Code(s): J96.01 - ACUTE RESPIRATORY FAILURE WITH HYPOXIA Status: Acute (2) Pneumonia due to COVID-19 virus Code(s): U07.1 - COVID-19; J12.82 - PNEUMONIA DUE TO CORONAVIRUS DISEASE 2019 Status: Acute (3) SYLVAIN (acute kidney injury) Code(s): N17.9 - ACUTE KIDNEY FAILURE, UNSPECIFIED Status: Acute (4) Hypokalemia Code(s): E87.6 - HYPOKALEMIA Status: Acute - Plan * Acute respiratory failure with hypoxemia- Continue Decadron and Colchicine * Continue ventilatory support * Acute kidney disease- - creatinine is stable * Heart heart rate is elevated, and has an elevated WBC count- agree with re- culture, and empiric antibiotics ( Meropenem and Vancomycin ) * Her blood pressure has been adequate * Hypokalemia- BMP is pending * CBC is pending * Tolerating tube feeds * She is on Lovenox and Protonix for DVT and GI Prophylaxis
--- NOTE | 2020-12-18 14:23 | PRG ---
DATE OF SERVICE: 12/18/2020 SUBJECTIVE: Ms. Lowry remains mechanically ventilated. Her FiO2 requirement has gone up. She needs to be chemically paralyzed. Intake and output negative 2523. OBJECTIVE: LUNGS: Remarkable for coarse equal breath sounds. HEART: Regular rhythm. ABDOMEN: Soft. LABORATORY DATA: White count 16.2, hemoglobin 10.4, platelets 197 yesterday. Electrolytes are essentially unchanged. IMPRESSION: COVID pneumonia with respiratory failure. Continue current ventilatory support. Critical care time 30 min. Job ID: [id number] [facility]
[2020-12-18] MEDS: Dextrose 5 % And 0.9 % NaCl 1,000 ML IV SCH ×2 (17:41→19:49)
[2020-12-18 17:42] LABS: Anion Gap 12 mmol/L (10-20); BUN (Urea Nitrogen) 29 mg/dL (9.8-20.1); Calc. Creatinine Clearance 90 mL/min (70-130); Calcium 7.3 mg/dL (7.8-10.44); Carbon Dioxide 21 mmol/L (23-31); Chloride 110 mmol/L (98-107); Glucose 185 mg/dL (80-115); Potassium 3.4 mmol/L (3.5-5.1); Sodium 140 mmol/L (136-145)
[2020-12-18 18:39] LABS: Hemoglobin 9.6 g/dL (12.0-16.0); Mean Corpuscular HGB CONC 33.3 g/dL (32.0-36.0); Mean Corpuscular Hemoglobin 30.2 pg (27.0-31.0); Mean Corpuscular Volume 90.5 fL (78.0-98.0); Platelet Count 207 thou/uL (130-400); RBC Distribution Width 13.5 % (11.5-14.5); Red Blood Cell (RBC) Count 3.18 mill/uL (4.20-5.40); White Blood Cell (WBC) Count 13.6 thou/uL (4.8-10.8)
[2020-12-18 18:56] LABS: Band 46 % (5-11); Lymphocytes 3 % (21-51); MDiff Complete? YES; Monocytes 1 % (0-10); Neutrophil 50 % (42-75); Platelet Morphology Comment Appears Adequate; Polychromasia SLIGHT = 2-3 cells (100X) (0-2/hpf)
[2020-12-18] MEDS: Atorvastatin Calcium 40 MG TAB PO SCH (19:44)
[2020-12-18] MEDS: Vecuronium 10 MG VIAL IV PRN (19:45)
[2020-12-18] MEDS: Lorazepam 2 MG/ML VIAL SLOW IVP PRN (19:45)
[2020-12-18 21:09] LABS: Vancomycin, Trough 8.8 ug/mL
[2020-12-18] MEDS: VANCOMYCIN 1.25 GM/250 ML BAG 1.25 GM in Premix Bag 1 BAG IVPB SCH (21:43)
[2020-12-19] MEDS: MEROPENEM 1 GM/50 ML 1 GM in Premix Bag 1 BAG IVPB SCH ×3 (00:07→17:29)
[2020-12-19] MEDS: Vecuronium 10 MG VIAL IV PRN ×3 (00:08→09:30)
[2020-12-19] MEDS: Lorazepam 2 MG/ML VIAL SLOW IVP PRN ×3 (00:09→09:30)
[2020-12-19] MEDS: Furosemide 40 MG/4 ML VIAL SLOW IVP SCH (05:01)
[2020-12-19 05:44] VITALS: BMI 31.4
[2020-12-19 05:52] LABS: Anion Gap 12 mmol/L (10-20); BUN (Urea Nitrogen) 33 mg/dL (9.8-20.1); Calc. Creatinine Clearance 88 mL/min (70-130); Calcium 7.2 mg/dL (7.8-10.44); Carbon Dioxide 23 mmol/L (23-31); Chloride 114 mmol/L (98-107); Glucose 236 mg/dL (80-115); Potassium 3.7 mmol/L (3.5-5.1); Sodium 145 mmol/L (136-145)
[2020-12-19 06:02] LABS: Hemoglobin 9.8 g/dL (12.0-16.0); Mean Corpuscular HGB CONC 34.7 g/dL (32.0-36.0); Mean Corpuscular Hemoglobin 31.8 pg (27.0-31.0); Mean Corpuscular Volume 91.5 fL (78.0-98.0); Mean Platelet Volume 8.5 fL (7.4-10.4); Platelet Count 206 thou/uL (130-400); RBC Distribution Width 13.6 % (11.5-14.5); Red Blood Cell (RBC) Count 3.07 mill/uL (4.20-5.40); White Blood Cell (WBC) Count 11.1 thou/uL (4.8-10.8)
[2020-12-19 06:03] LABS: Band 20 % (5-11); Lymphocytes 10 % (21-51); MDiff Complete? YES; Monocytes 5 % (0-10); Neutrophil 65 % (42-75)
[2020-12-19] MEDS ORDERED: HumaLOG 300 UNITS/3 ML VIAL SC PRN (07:52)
[2020-12-19] MEDS ORDERED: Dextrose 5% in Water 1,000 ML IV PRN (07:52)
[2020-12-19] MEDS ORDERED: Dextrose 50% Abboject 50 ML SYRINGE SLOW IVP PRN (07:52)
--- NOTE | 2020-12-19 07:59 | RAD ---
XR Chest 1 View Portable HISTORY: Covid pneumonia COMPARISON: Prior day's exam. FINDINGS: Endotracheal tube is in satisfactory position. NG tube is difficult to visualize but appear s to be below the hemidiaphragm. Bilateral lung infiltrates appear stable. Left subclavian line unchanged in position. IMPRESSION: Stable exam.
[2020-12-19] MEDS: Dexamethasone 4 mg/ml Vial SLOW IVP SCH (08:17)
[2020-12-19] MEDS: Budesonide 0.5 MG/2 ML NEB NEB SCH ×2 (08:23→18:55)
[2020-12-19] MEDS: Ascorbic Acid 500 mg Chewable Tablet PER TUBE SCH (08:59)
[2020-12-19] MEDS: Pantoprazole 40 MG GRANULES PACKET PER TUBE SCH ×2 (08:59→21:18)
[2020-12-19] MEDS: Zinc Sulfate 220 MG CAP PER TUBE SCH (08:59)
[2020-12-19] MEDS: Enoxaparin Sodium 60 MG/0.6 ML SYRINGE SC SCH ×2 (08:59→21:18)
[2020-12-19] MEDS: Colchicine 0.6 MG TAB PO SCH ×2 (09:00→21:18)
--- NOTE | 2020-12-19 09:56 | PDOC.HOSPP ---
- Subjective Encounter Date: 12/19/20 Encounter Time: 09:54 Subjective: Ms. Lowry was seen today in follow-up of respiratory failure due to COVID. She is intubated and sedated. She desaturates with minimal movement. - Objective Vital Signs & Weight: Vital Signs (12 hours) Temp Pulse Resp BP Pulse Ox 12/19/20 08:23 108 H 14 87 L 12/19/20 08:17 112 H 130/86 12/19/20 06:00 14 12/19/20 04:00 98.7 F 25 H 12/19/20 02:38 89 12/19/20 02:00 19 12/19/20 00:00 98.6 F 24 H 91 L 12/18/20 22:52 115 H 12/18/20 22:00 14 Weight Admit Weight 132 lb Weight 130 lb 4.691 oz Most Recent Monitor Data Heart Rate from ECG 106 NIBP 146/88 NIBP BP-Mean 107 Respiration from ECG 14 SpO2 88 I&O: 12/18/20 12/19/20 12/20/20 06:59 06:59 06:59 Intake Total 506 2900.4 Output Total 3030 2575 Balance -2524 325.4 Result Diagrams: 12/19/20 05:15 12/19/20 05:15 Hospitalist ROS - Medication Medications: Active Medications Generic Name Dose Route Start Last Admin Trade Name Freq PRN Reason Stop Dose Admin Ascorbic Acid 1,000 mg 12/15/20 09:00 12/19/20 08:59 Ascorbic Acid 500 Mg Chewable Tablet PER TUBE 1,000 mg DAILY GLO Administration Atorvastatin Calcium 40 mg 12/09/20 21:00 12/18/20 19:44 Atorvastatin Calcium 40 Mg Tab PO 40 mg HS GLO Administration Budesonide 0.5 mg 12/16/20 18:30 12/19/20 08:23 Budesonide 0.5 Mg/2 Ml Neb NEB 0.5 mg BID-RT GLO Administration Colchicine 0.6 mg 12/09/20 21:00 12/19/20 09:00 Colchicine 0.6 Mg Tab PO 0.6 mg BID GLO Administration Dexamethasone 6 mg 12/10/20 09:00 12/19/20 08:17 Dexamethasone 4 Mg/Ml Vial SLOW IVP 6 mg DAILY GLO Administration Enoxaparin Sodium 60 mg 12/09/20 21:00 12/19/20 08:59 Enoxaparin Sodium 60 Mg/0.6 Ml Syringe SC 60 mg 0900,2100 GLO Administration Hydralazine HCl 10 mg 12/15/20 01:39 12/15/20 02:05 Hydralazine 20 Mg/Ml Vial SLOW IVP 10 mg Q4H PRN Administration SBP Greater Than 180 Midazolam HCl 100 mls @ 0 mls/hr 12/17/20 08:45 12/19/20 09:30 Versed IVPB 100 mls INF GLO Administration Protocol Titrate Meropenem 1 gm/ Device 50 mls @ 100 mls/hr 12/17/20 09:00 12/19/20 09:08 IVPB 50 mls 0100,0900,1700 GLO Administration Vancomycin HCl 1.25 gm/ Device 250 mls @ 125 mls/hr 12/18/20 22:00 12/18/20 21:43 IVPB 250 mls 1000,2200 GLO Administration Lorazepam 2 mg 12/09/20 14:00 12/19/20 09:30 Lorazepam 2 Mg/Ml Vial SLOW IVP 01/08/21 14:00 2 mg Q1H PRN Administration Breakthrough agitation Morphine Sulfate 2 mg 12/09/20 14:00 12/17/20 09:47 Morphine 2 Mg/Ml Vial SLOW IVP 01/08/21 14:00 2 mg Q1H PRN Administration Breakthrough Pain/Agitation Pantoprazole Sodium 40 mg 12/15/20 09:00 12/19/20 08:59 Pantoprazole 40 Mg Granules Packet PER TUBE 40 mg BID GLO Administration Sodium Chloride 10 ml 12/11/20 21:00 12/19/20 09:02 Flush - Normal Saline 10 Ml Syringe IVF 10 ml Q12HR GLO Administration Sodium Chloride 10 ml 12/11/20 13:45 12/17/20 09:53 Flush - Normal Saline 10 Ml Syringe IVF 10 ml PRN PRN Administration Saline Flush Vecuronium [place] 10 mg 12/09/20 20:15 12/19/20 09:30 Vecuronium 10 Mg Vial IV 10 mg Q1H PRN Administration Agitation Zinc Sulfate 220 mg 12/15/20 09:00 12/19/20 08:59 Zinc Sulfate 220 Mg Cap PER TUBE 220 mg DAILY GLO Administration Hospitalist Exam Vitals: Vital Signs (12 hours) Temp Pulse Resp BP Pulse Ox 12/19/20 08:23 108 H 14 87 L 12/19/20 08:17 112 H 130/86 12/19/20 06:00 14 12/19/20 04:00 98.7 F 25 H 12/19/20 02:38 89 12/19/20 02:00 19 12/19/20 00:00 98.6 F 24 H 91 L 12/18/20 22:52 115 H 12/18/20 22:00 14 Weight Admit Weight 132 lb Weight 130 lb 4.691 oz Most Recent Monitor Data Heart Rate from ECG 106 NIBP 146/88 NIBP BP-Mean 107 Respiration from ECG 14 SpO2 88 General Appearance: NAD, awake alert Eye: PERRL, anicteric sclera Heart: RRR, no murmur, no gallops, no rubs, normal peripheral pulses Respiratory: no wheezes, rales (at both bases, no rhonchi) Gastrointestinal: soft, non-tender, non-distended, normal bowel sounds, no palpable masses, diminished bowl sounds Extremities: no cyanosis, no edema Hosp A/P (1) Acute respiratory failure with hypoxia Code(s): J96.01 - ACUTE RESPIRATORY FAILURE WITH HYPOXIA Status: Acute (2) Pneumonia due to COVID-19 virus Code(s): U07.1 - COVID-19; J12.82 - PNEUMONIA DUE TO CORONAVIRUS DISEASE 2019 Status: Acute (3) SYLVAIN (acute kidney injury) Code(s): N17.9 - ACUTE KIDNEY FAILURE, UNSPECIFIED Status: Acute (4) Hypokalemia Code(s): E87.6 - HYPOKALEMIA Status: Acute - Plan * Acute respiratory failure with hypoxemia- Continue Decadron and Colchicine * She has had difficulty oxygenating- so she was paralyzed * Acute kidney disease- - creatinine is stable, and urine out put has been adequate * Hyperglycemia- will change fluids to LR * Her blood pressure has been adequate * Hypokalemia- potassium has improved * She has had high residual volumes with her tube feeding- will add Reglan * She is on Lovenox and Protonix for DVT and GI Prophylaxis * Prognosis is guarded
[2020-12-19] MEDS: VANCOMYCIN 1.25 GM/250 ML BAG 1.25 GM in Premix Bag 1 BAG IVPB SCH (10:15)
[2020-12-19] MEDS: Lactated Ringer's 1,000 ML IV SCH (10:36)
[2020-12-19 10:42] LABS: Vancomycin, Trough 14.5 ug/mL
[2020-12-19] MEDS: HumaLOG 300 UNITS/3 ML VIAL SC PRN ×2 (12:30→17:48)
[2020-12-19] MEDS ORDERED: Furosemide 40 MG/4 ML VIAL IVP SCH (12:55)
--- NOTE | 2020-12-19 13:12 | PRG ---
DATE OF SERVICE: 12/19/2020 SUBJECTIVE: Ms. Lowry is clinically deteriorating. OBJECTIVE: VITAL SIGNS: Heart rate is 112. She is afebrile. Blood pressure 123/82, FiO2 is at 100%, PEEP is at 14. LUNGS: Clear. HEART: Regular rhythm. ABDOMEN: Soft. IMAGING STUDIES: Chest radiograph shows diffuse infiltrates. LABORATORY DATA: White count 11.1, hemoglobin 9.8, and platelets 206,000. Electrolytes are essentially unchanged. IMPRESSION: COVID pneumonia. Intake and output are only positive 325. Very little else we have to offer her at this point in time. I doubt she will survive this. Job ID: [id number]
[2020-12-19] MEDS ORDERED: Lorazepam 2 MG/ML VIAL SLOW IVP PRN (14:18)
[2020-12-19] MEDS ORDERED: Morphine 2 MG/ML VIAL SLOW IVP PRN (14:18)
[2020-12-19] MEDS ORDERED: Fentanyl BOLUS 250 ML IVPB PRN (14:19)
[2020-12-19] MEDS ORDERED: Fentanyl CADD 100 ML IV SCH (14:30)
[2020-12-19] MEDS: Metoclopramide HCl 10 MG/2 ML VIAL IVP SCH ×2 (14:46→21:18)
[2020-12-19] MEDS: Atorvastatin Calcium 40 MG TAB PO SCH (21:18)
[2020-12-19] MEDS: Vancomycin 1.5 GRAM/300 ML BAG 1.5 GM in Premix Bag 1 BAG IVPB SCH (21:19)
[2020-12-20] MEDS: Lactated Ringer's 1,000 ML IV SCH ×2 (00:35→15:25)
[2020-12-20] MEDS: HumaLOG 300 UNITS/3 ML VIAL SC PRN (01:09)
[2020-12-20] MEDS: MEROPENEM 1 GM/50 ML 1 GM in Premix Bag 1 BAG IVPB SCH ×3 (01:11→18:00)
[2020-12-20 05:29] LABS: Anion Gap 12 mmol/L (10-20); BUN (Urea Nitrogen) 38 mg/dL (9.8-20.1); Calc. Creatinine Clearance 93 mL/min (70-130); Calcium 7.9 mg/dL (7.8-10.44); Carbon Dioxide 26 mmol/L (23-31); Chloride 111 mmol/L (98-107); Glucose 149 mg/dL (80-115); Potassium 3.2 mmol/L (3.5-5.1); Sodium 146 mmol/L (136-145)
[2020-12-20 05:35] LABS: Band 9 % (5-11); Eosinophils 1 % (0-10); Hemoglobin 10.3 g/dL (12.0-16.0); Lymphocytes 7 % (21-51); MDiff Complete? YES; Mean Corpuscular Hemoglobin 31.3 pg (27.0-31.0); Monocytes 1 % (0-10); Neutrophil 82 % (42-75); Platelet Count 245 thou/uL (130-400); RBC Distribution Width 13.9 % (11.5-14.5); White Blood Cell (WBC) Count 15.6 thou/uL (4.8-10.8)
[2020-12-20] MEDS: Metoclopramide HCl 10 MG/2 ML VIAL IVP SCH ×3 (05:59→21:29)
[2020-12-20] MEDS: Budesonide 0.5 MG/2 ML NEB NEB SCH ×2 (07:06→20:26)
[2020-12-20] MEDS ORDERED: Potassium Bicarbonate/Cit Ac 20 MEQ TAB PER TUBE SCH (08:00)
[2020-12-20] MEDS: Enoxaparin Sodium 60 MG/0.6 ML SYRINGE SC SCH ×2 (09:06→20:32)
[2020-12-20] MEDS: Dexamethasone 4 mg/ml Vial SLOW IVP SCH (09:07)
[2020-12-20] MEDS: Pantoprazole 40 MG GRANULES PACKET PER TUBE SCH ×2 (09:07→20:22)
[2020-12-20] MEDS: Colchicine 0.6 MG TAB PO SCH ×2 (09:07→20:22)
[2020-12-20] MEDS: Ascorbic Acid 500 mg Chewable Tablet PER TUBE SCH (09:07)
[2020-12-20] MEDS: Zinc Sulfate 220 MG CAP PER TUBE SCH (09:07)
[2020-12-20] MEDS ORDERED: Furosemide 40 MG/4 ML VIAL IVP SCH (09:36)
[2020-12-20] MEDS: Vancomycin 1.5 GRAM/300 ML BAG 1.5 GM in Premix Bag 1 BAG IVPB SCH ×2 (10:00→21:28)
--- NOTE | 2020-12-20 10:12 | PDOC.HOSPP ---
- Subjective Encounter Date: 12/20/20 Encounter Time: 10:11 Subjective: Ms. Lowry was seen today in follow-up of respiratoy failure due to COVID pneumonia. She remains intubated, and sedated. - Objective Vital Signs & Weight: Vital Signs (12 hours) Pulse Resp BP Pulse Ox 12/20/20 07:06 95 20 93 L 12/20/20 06:58 97 135/90 12/20/20 03:43 94 12/19/20 23:24 102 H Weight Admit Weight 132 lb Weight 130 lb 1.164 oz Most Recent Monitor Data Heart Rate from ECG 96 NIBP 133/90 NIBP BP-Mean 104 Respiration from ECG 23 SpO2 94 I&O: 12/19/20 12/20/20 12/21/20 06:59 06:59 06:59 Intake Total 2900.4 2721 Output Total 2575 4215 Balance 325.4 -1494 Result Diagrams: 12/20/20 04:50 12/20/20 04:50 Additional Labs: Accuchecks 12/20/20 12/19/20 12/19/20 04:44 23:43 17:48 POC Glucose 155 H 182 H 261 H 12/19/20 11:36 POC Glucose 250 H Hospitalist ROS - Medication Medications: Active Medications Generic Name Dose Route Start Last Admin Trade Name Bradleyq PRN Reason Stop Dose Admin Ascorbic Acid 1,000 mg 12/15/20 09:00 12/20/20 09:07 Ascorbic Acid 500 Mg Chewable Tablet PER TUBE 1,000 mg DAILY GLO Administration Atorvastatin Calcium 40 mg 12/09/20 21:00 12/19/20 21:18 Atorvastatin Calcium 40 Mg Tab PO 40 mg HS GLO Administration Budesonide 0.5 mg 12/16/20 18:30 12/20/20 07:06 Budesonide 0.5 Mg/2 Ml Neb NEB 0.5 mg BID-RT GLO Administration Colchicine 0.6 mg 12/09/20 21:00 12/20/20 09:07 Colchicine 0.6 Mg Tab PO 0.6 mg BID GLO Administration Dexamethasone 6 mg 12/10/20 09:00 12/20/20 09:07 Dexamethasone 4 Mg/Ml Vial SLOW IVP 6 mg DAILY GLO Administration Enoxaparin Sodium 60 mg 12/09/20 21:00 12/20/20 09:06 Enoxaparin Sodium 60 Mg/0.6 Ml Syringe SC 60 mg 0900,2100 GLO Administration Hydralazine HCl 10 mg 12/15/20 01:39 12/15/20 02:05 Hydralazine 20 Mg/Ml Vial SLOW IVP 10 mg Q4H PRN Administration SBP Greater Than 180 Midazolam HCl 100 mls @ 0 mls/hr 12/17/20 08:45 12/20/20 05:25 Versed IVPB 100 mls INF GLO Administration Protocol Titrate Meropenem 1 gm/ Device 50 mls @ 100 mls/hr 12/17/20 09:00 12/20/20 09:09 IVPB 50 mls 0100,0900,1700 GLO Administration Lactated Ringer's 1,000 mls @ 70 mls/hr 12/19/20 10:00 12/20/20 00:35 Lactated Ringer's IV 1,000 mls .[id number] GLO Administration Vancomycin HCl 1.5 gm/ Device 300 mls @ 200 mls/hr 12/19/20 22:00 12/19/20 21:19 IVPB 300 mls 1000,2200 GLO Administration Insulin Human Lispro 0 units 12/19/20 07:52 12/20/20 01:09 Humalog 300 Units/3 Ml Vial SC 2 unit .MODERATE SLIDING SC PRN Administration Moderate Correctional Scale Metoclopramide HCl 10 mg 12/19/20 14:00 12/20/20 05:59 Metoclopramide Hcl 10 Mg/2 Ml Vial IVP 10 mg Q8HR GLO Administration Pantoprazole Sodium 40 mg 12/15/20 09:00 12/20/20 09:07 Pantoprazole 40 Mg Granules Packet PER TUBE 40 mg BID GLO Administration Sodium Chloride 10 ml 12/11/20 21:00 12/20/20 09:10 Flush - Normal Saline 10 Ml Syringe IVF 10 ml Q12HR GLO Administration Sodium Chloride 10 ml 12/11/20 13:45 12/17/20 09:53 Flush - Normal Saline 10 Ml Syringe IVF 10 ml PRN PRN Administration Saline Flush Vecuronium [place] 10 mg 12/09/20 20:15 12/19/20 09:30 Vecuronium 10 Mg Vial IV 10 mg Q1H PRN Administration Agitation Zinc Sulfate 220 mg 12/15/20 09:00 12/20/20 09:07 Zinc Sulfate 220 Mg Cap PER TUBE 220 mg DAILY GLO Administration Hospitalist Exam Vitals: Vital Signs (12 hours) Pulse Resp BP Pulse Ox 12/20/20 07:06 95 20 93 L 12/20/20 06:58 97 135/90 12/20/20 03:43 94 12/19/20 23:24 102 H Weight Admit Weight 132 lb Weight 130 lb 1.164 oz Most Recent Monitor Data Heart Rate from ECG 96 NIBP 133/90 NIBP BP-Mean 104 Respiration from ECG 23 SpO2 94 General Appearance: NAD, awake alert Eye: PERRL, anicteric sclera Heart: RRR, no murmur, no gallops, no rubs, normal peripheral pulses Respiratory: no wheezes, no ronchi, rales (at the bases) Gastrointestinal: soft, non-tender, non-distended, normal bowel sounds, no palpable masses, no hepatomegaly Extremities: no cyanosis, 1+ LE edema (palpable d.p. pulses, no lesions) Hosp A/P (1) Acute respiratory failure with hypoxia Code(s): J96.01 - ACUTE RESPIRATORY FAILURE WITH HYPOXIA Status: Acute (2) Pneumonia due to COVID-19 virus Code(s): U07.1 - COVID-19; J12.82 - PNEUMONIA DUE TO CORONAVIRUS DISEASE 2019 Status: Acute (3) SYLVAIN (acute kidney injury) Code(s): N17.9 - ACUTE KIDNEY FAILURE, UNSPECIFIED Status: Acute (4) Hypokalemia Code(s): E87.6 - HYPOKALEMIA Status: Acute - Plan * Acute respiratory failure with hypoxemia- Continue Decadron and Colchicine * She has had difficulty oxygenating- so she was paralyzed * Acute kidney disease- - creatinine is stable, and urine out put has been adequate * Hyperglycemia- blood glucose is a bit better, continue SSI * Her blood pressure has been adequate * Hypokalemia- continue to monitor and replace * Continue Reglan with tube feeds * She is on Lovenox and Protonix for DVT and GI Prophylaxis * Prognosis is guarded, as she has been on maximal ventilatory support for several days, without much improvement. Will try to reach family to discuss
--- NOTE | 2020-12-20 10:37 | RAD ---
CHEST 1 VIEW: Date: 12/20/2020 HISTORY: Ventilated patient. COMPARISON: Radiograph prior day. FINDINGS: Endotracheal tube tip at clavicular level. Left subclavian central venous catheter tip in inferior SV C. Air space opacities are similar. Moderate effusions. Cardiac silhouette is similar. Enteric tube tip below the diaphragm, though out of field of view. IMPRESSION: Similar examination of the chest. POS: HOME
--- NOTE | 2020-12-20 11:14 | PRG ---
DATE OF SERVICE: 12/20/2020 SUBJECTIVE: Ms. Lowry remains clinically unchanged. OBJECTIVE: VITAL SIGNS: Turned her FiO2 down to 90% today, although I am not sure that she is going to tolerate this or improve, heart rates in the 90s, blood pressure 133/90. LUNGS: Remarkable for equal breath sounds. HEART: Regular rhythm. ABDOMEN: Soft. EXTREMITIES: Unchanged. LABORATORY DATA: White count 15.6, hemoglobin 10.3, platelets 245. Sodium 146, potassium 3.2, chloride 111, bicarb 26, BUN 38, creatinine 0.55. IMPRESSION: 1. Severe COVID pneumonia, not clinically improving. 2. Pneumomediastinum on presentation suggesting she had had this for a while. 3. Intubation on admission. She diuresed with Lasix. Yesterday, was negative 1494, but it did not really help with her gas exchange. We will continue to give her Lasix again today. Job ID: [id number]
[2020-12-20 13:55] LABS: Potassium 3.8 mmol/L (3.5-5.1)
[2020-12-20] MEDS: Atorvastatin Calcium 40 MG TAB PO SCH (20:22)
[2020-12-21] MEDS: MEROPENEM 1 GM/50 ML 1 GM in Premix Bag 1 BAG IVPB SCH ×3 (00:05→17:10)
[2020-12-21 05:03] LABS: Anion Gap 9 mmol/L (10-20); BUN (Urea Nitrogen) 38 mg/dL (9.8-20.1); Calc. Creatinine Clearance 102 mL/min (70-130); Calcium 7.8 mg/dL (7.8-10.44); Carbon Dioxide 28 mmol/L (23-31); Chloride 111 mmol/L (98-107); Glucose 105 mg/dL (80-115); Potassium 3.6 mmol/L (3.5-5.1); Sodium 144 mmol/L (136-145)
[2020-12-21 05:35] LABS: Band 1 % (5-11); Eosinophils 1 % (0-10); Hemoglobin 10.1 g/dL (12.0-16.0); Lymphocytes 7 % (21-51); MDiff Complete? YES; Mean Corpuscular Hemoglobin 32.4 pg (27.0-31.0); Mean Corpuscular Volume 92.5 fL (78.0-98.0); Mean Platelet Volume 9.2 fL (7.4-10.4); Monocytes 3 % (0-10); Neutrophil 88 % (42-75); Platelet Count 209 thou/uL (130-400); RBC Distribution Width 13.8 % (11.5-14.5); Red Blood Cell (RBC) Count 3.12 mill/uL (4.20-5.40); White Blood Cell (WBC) Count 11.9 thou/uL (4.8-10.8)
[2020-12-21] MEDS: Metoclopramide HCl 10 MG/2 ML VIAL IVP SCH ×3 (05:53→21:44)
[2020-12-21] MEDS: Lactated Ringer's 1,000 ML IV SCH ×2 (06:20→20:00)
[2020-12-21] MEDS: Budesonide 0.5 MG/2 ML NEB NEB SCH ×2 (07:05→20:34)
--- NOTE | 2020-12-21 07:10 | PDOC.BPN ---
- Brief Progress Note Encounter Date: 12/20/20 Encounter Time: 19:30 I spoke with the patient's nephew, Amalia Lowry [phone] and informed him on the patient's condition. I explained that she is not doing well, and about her poor prognosis. I answered his questions. He told me he will inform the patient's immediate family.
--- NOTE | 2020-12-21 08:40 | RAD ---
PORTABLE CHEST: DATE: 12/21/2020. PROVIDED CLINICAL HISTORY: Respiratory insufficiency. FINDINGS: Comparison 12/20/2020. Significant interval change with respect to the prior examination is not appar ent. IMPRESSION: As above. POS: [facility]
[2020-12-21] MEDS: Dexamethasone 4 mg/ml Vial SLOW IVP SCH (09:12)
[2020-12-21] MEDS: Pantoprazole 40 MG GRANULES PACKET PER TUBE SCH ×2 (09:13→21:42)
[2020-12-21] MEDS: Colchicine 0.6 MG TAB PO SCH ×2 (09:13→21:42)
[2020-12-21] MEDS: Zinc Sulfate 220 MG CAP PER TUBE SCH (09:13)
[2020-12-21] MEDS: Enoxaparin Sodium 60 MG/0.6 ML SYRINGE SC SCH ×2 (09:14→21:43)
[2020-12-21 09:42] LABS: Vancomycin, Trough 17.9 ug/mL
[2020-12-21] MEDS: Ascorbic Acid 500 mg Chewable Tablet PER TUBE SCH (09:44)
--- NOTE | 2020-12-21 11:12 | PDOC.HOSPP ---
- Subjective Encounter Date: 12/21/20 Encounter Time: 11:10 Subjective: Ms. Lowry was seen today in follow-up of respiratory failure due to COVID pneumonia. She remains intubated. No significant changes overnight. She continues to desaturate with the slightest of movements. - Objective Vital Signs & Weight: Vital Signs (12 hours) Pulse Resp BP Pulse Ox 12/21/20 10:45 96 132/86 12/21/20 07:05 95 23 H 92 L 12/21/20 06:59 95 128/86 12/21/20 04:43 90 12/21/20 01:23 90 12/21/20 00:49 100 Weight Admit Weight 132 lb Weight 130 lb 1.164 oz Most Recent Monitor Data Heart Rate from ECG 92 NIBP 121/76 NIBP BP-Mean 91 Respiration from ECG 23 SpO2 93 I&O: 12/20/20 12/21/20 12/22/20 06:59 06:59 06:59 Intake Total 2721 960 Output Total 7390 3588 Balance -1494 -1805 Result Diagrams: 12/21/20 04:00 12/21/20 04:00 Additional Labs: Accuchecks 12/21/20 12/21/20 12/20/20 05:59 00:07 17:25 POC Glucose 101 H 105 H 129 H 12/20/20 11:48 POC Glucose 112 H Hospitalist ROS - Medication Medications: Active Medications Generic Name Dose Route Start Last Admin Trade Name Freq PRN Reason Stop Dose Admin Ascorbic Acid 1,000 mg 12/15/20 09:00 12/21/20 09:44 Ascorbic Acid 500 Mg Chewable Tablet PER TUBE 1,000 mg DAILY GLO Administration Atorvastatin Calcium 40 mg 12/09/20 21:00 12/20/20 20:22 Atorvastatin Calcium 40 Mg Tab PO 40 mg HS GLO Administration Budesonide 0.5 mg 12/16/20 18:30 12/21/20 07:05 Budesonide 0.5 Mg/2 Ml Neb NEB 0.5 mg BID-RT GLO Administration Colchicine 0.6 mg 12/09/20 21:00 12/21/20 09:13 Colchicine 0.6 Mg Tab PO 0.6 mg BID GLO Administration Dexamethasone 6 mg 12/10/20 09:00 12/21/20 09:12 Dexamethasone 4 Mg/Ml Vial SLOW IVP 6 mg DAILY GLO Administration Enoxaparin Sodium 60 mg 12/09/20 21:00 12/21/20 09:14 Enoxaparin Sodium 60 Mg/0.6 Ml Syringe SC Not Given 899,2099 GLO Hydralazine HCl 10 mg 12/15/20 01:39 12/15/20 02:05 Hydralazine 20 Mg/Ml Vial SLOW IVP 10 mg Q4H PRN Administration SBP Greater Than 180 Midazolam HCl 100 mls @ 0 mls/hr 12/17/20 08:45 12/21/20 01:41 Versed IVPB 100 mls INF GLO Administration Protocol Titrate Meropenem 1 gm/ Device 50 mls @ 100 mls/hr 12/17/20 09:00 12/21/20 10:10 IVPB 50 mls 0100,0900,1700 GLO Administration Lactated Ringer's 1,000 mls @ 70 mls/hr 12/19/20 10:00 12/21/20 06:20 Lactated Ringer's IV 1,000 mls .[id number] GLO Administration Vancomycin HCl 1.5 gm/ Sodium 300 mls @ 200 mls/hr 12/21/20 10:00 12/21/20 09:44 Chloride IVPB 300 mls 1000,2200 GLO Administration Insulin Human Lispro 0 units 12/19/20 07:52 12/20/20 01:09 Humalog 300 Units/3 Ml Vial SC 2 unit .MODERATE SLIDING SC PRN Administration Moderate Correctional Scale Metoclopramide HCl 10 mg 12/19/20 14:00 12/21/20 05:53 Metoclopramide Hcl 10 Mg/2 Ml Vial IVP 10 mg Q8HR GLO Administration Pantoprazole Sodium 40 mg 12/15/20 09:00 12/21/20 09:13 Pantoprazole 40 Mg Granules Packet PER TUBE 40 mg BID GLO Administration Sodium Chloride 10 ml 12/11/20 21:00 12/21/20 09:13 Flush - Normal Saline 10 Ml Syringe IVF 10 ml Q12HR GLO Administration Sodium Chloride 10 ml 12/11/20 13:45 12/17/20 09:53 Flush - Normal Saline 10 Ml Syringe IVF 10 ml PRN PRN Administration Saline Flush Vecuronium [place] 10 mg 12/09/20 20:15 12/19/20 09:30 Vecuronium 10 Mg Vial IV 10 mg Q1H PRN Administration Agitation Zinc Sulfate 220 mg 12/15/20 09:00 12/21/20 09:13 Zinc Sulfate 220 Mg Cap PER TUBE 220 mg DAILY GLO Administration Hospitalist Exam Vitals: Vital Signs (12 hours) Pulse Resp BP Pulse Ox 12/21/20 10:45 96 132/86 12/21/20 07:05 95 23 H 92 L 12/21/20 06:59 95 128/86 12/21/20 04:43 90 12/21/20 01:23 90 12/21/20 00:49 100 Weight Admit Weight 132 lb Weight 130 lb 1.164 oz Most Recent Monitor Data Heart Rate from ECG 92 NIBP 121/76 NIBP BP-Mean 91 Respiration from ECG 23 SpO2 93 General Appearance: NAD, awake alert Eye: PERRL, anicteric sclera Heart: RRR, no murmur, no gallops, no rubs, normal peripheral pulses Respiratory: no wheezes, no ronchi, rales (at the bases) Gastrointestinal: soft, non-tender, non-distended, normal bowel sounds, no palpable masses, no hepatomegaly Extremities: no cyanosis (palpable d.p. pulses bilaterally no lesions), 1+ LE edema Hosp A/P (1) Acute respiratory failure with hypoxia Code(s): J96.01 - ACUTE RESPIRATORY FAILURE WITH HYPOXIA Status: Acute (2) Pneumonia due to COVID-19 virus Code(s): U07.1 - COVID-19; J12.82 - PNEUMONIA DUE TO CORONAVIRUS DISEASE 2019 Status: Acute (3) SYLVAIN (acute kidney injury) Code(s): N17.9 - ACUTE KIDNEY FAILURE, UNSPECIFIED Status: Acute (4) Hypokalemia Code(s): E87.6 - HYPOKALEMIA Status: Acute - Plan * Acute respiratory failure with hypoxemia- Continue Decadron and Colchicine * She continues to require maximal ventilator support * Acute kidney disease- - creatinine is stable, and urine out put has been adequate * Hyperglycemia- blood glucose is stable * Her blood pressure has been adequate * Hypokalemia- stable * Continue Reglan with tube feeds * She is on Lovenox and Protonix for DVT and GI Prophylaxis * Prognosis is guarded, I spoke with the patient's nephew last night about her condition. He called back this morning, and has requested that her code status be changed to DNAR.
--- NOTE | 2020-12-21 13:07 | PRG ---
DATE OF SERVICE: 12/21/2020 OBJECTIVE: VITAL SIGNS: Ms. Lowry heart rate is in the 90s, blood pressure 121/76, respiratory rate is in the 20s, we will turn her FiO2 down to 80% today. GENERAL: Family was willing to make her DNR after I discuss her chances of survival if she codes to be zero. We will continue with aggressive care short of a code. LUNGS: Unchanged. HEART: Unchanged. ABDOMEN: Unchanged. LABORATORY DATA: White count 11.9, hemoglobin 10.1, platelets 209. Electrolytes are normal. BUN 38, creatinine 0.5. IMPRESSION: COVID pneumonia, respiratory failure. PLAN: Continue support. Job ID: [id number]
[2020-12-21 17:26] VITALS: TEMP 98.8
[2020-12-21] MEDS: Atorvastatin Calcium 40 MG TAB PO SCH (21:42)
[2020-12-21] MEDS ORDERED: Vancomycin 1.5 GRAM/300 ML BAG 1.5 GM in Premix Bag 1 BAG IVPB SCH (22:00)
[2020-12-22] MEDS: MEROPENEM 1 GM/50 ML 1 GM in Premix Bag 1 BAG IVPB SCH (00:06)
[2020-12-22] MEDS: Metoclopramide HCl 10 MG/2 ML VIAL IVP SCH (05:25)
[2020-12-22 05:31] LABS: Anion Gap 12 mmol/L (10-20); BUN (Urea Nitrogen) 35 mg/dL (9.8-20.1); Calc. Creatinine Clearance 104 mL/min (70-130); Calcium 7.8 mg/dL (7.8-10.44); Carbon Dioxide 22 mmol/L (23-31); Chloride 111 mmol/L (98-107); Glucose 124 mg/dL (80-115); Potassium 3.6 mmol/L (3.5-5.1); Sodium 141 mmol/L (136-145)
[2020-12-22 05:48] LABS: Band 3 % (5-11); Eosinophils 1 % (0-10); Hemoglobin 7.6 g/dL (12.0-16.0); Hypochromia SLIGHT = 6-15 cells (100X) (0-5/hpf); Lymphocytes 12 % (21-51); MDiff Complete? YES; Mean Corpuscular HGB CONC 33.5 g/dL (32.0-36.0); Mean Corpuscular Hemoglobin 30.5 pg (27.0-31.0); Monocytes 6 % (0-10); Neutrophil 78 % (42-75); Platelet Count 284 thou/uL (130-400); Platelet Morphology Comment Appears Adequate; RBC Distribution Width 13.9 % (11.5-14.5); Red Blood Cell (RBC) Count 2.48 mill/uL (4.20-5.40); White Blood Cell (WBC) Count 15.5 thou/uL (4.8-10.8)
[2020-12-22] MEDS: Budesonide 0.5 MG/2 ML NEB NEB SCH (07:57)
--- NOTE | 2020-12-22 08:21 | RAD ---
Exam: Chest one view HISTORY:Respiratory distress. Ventilated patient. Comparison: 12/21/2020 FINDINGS: Lines and tubes: Stable endotracheal tube Cardiac silhouette: Normal Aorta: Unremarkable Pulmonary vessels: Normal Costophrenic angles: Clear LUNGS: Persistent confluent bilateral interstitial and alveolar opacities. Pneumothorax: None Osseous abnormalities: None IMPRESSION: No significant interval change.
--- NOTE | 2020-12-22 09:41 | PDOC.HOSPP ---
- Subjective Encounter Date: 12/22/20 Encounter Time: 09:39 Subjective: Ms. Lowry was seen today in follow-up of respiratory failure due to COVID pneumonia. She is currently requiring ventilator support. - Objective Vital Signs & Weight: Vital Signs (12 hours) Pulse Resp BP Pulse Ox 12/22/20 07:57 117 H 39 H 88 L 12/22/20 07:37 114 H 147/87 H 12/22/20 02:42 101 H 12/21/20 22:30 102 H Weight Admit Weight 132 lb Weight 130 lb 1.164 oz Most Recent Monitor Data Heart Rate from ECG 109 NIBP 140/95 NIBP BP-Mean 110 Respiration from ECG 35 SpO2 90 I&O: 12/21/20 12/22/20 12/23/20 06:59 06:59 06:59 Intake Total 1170 1475 Output Total 2765 1615 Balance -1595 -140 Result Diagrams: 12/22/20 05:00 12/22/20 05:00 Additional Labs: Accuchecks 12/21/20 12/21/20 17:16 12:01 POC Glucose 157 H 105 H Hospitalist ROS - Medication Medications: Active Medications Generic Name Dose Route Start Last Admin Trade Name Freq PRN Reason Stop Dose Admin Ascorbic Acid 1,000 mg 12/15/20 09:00 12/21/20 09:44 Ascorbic Acid 500 Mg Chewable Tablet PER TUBE 1,000 mg DAILY GLO Administration Atorvastatin Calcium 40 mg 12/09/20 21:00 12/21/20 21:42 Atorvastatin Calcium 40 Mg Tab PO 40 mg HS GLO Administration Budesonide 0.5 mg 12/16/20 18:30 12/22/20 07:57 Budesonide 0.5 Mg/2 Ml Neb NEB 0.5 mg BID-RT GLO Administration Colchicine 0.6 mg 12/09/20 21:00 12/21/20 21:42 Colchicine 0.6 Mg Tab PO 0.6 mg BID GLO Administration Dexamethasone 6 mg 12/10/20 09:00 12/21/20 09:12 Dexamethasone 4 Mg/Ml Vial SLOW IVP 6 mg DAILY GLO Administration Enoxaparin Sodium 60 mg 12/09/20 21:00 12/21/20 21:43 Enoxaparin Sodium 60 Mg/0.6 Ml Syringe SC Not Given 899,2099 [facility] Hydralazine HCl 10 mg 12/15/20 01:39 12/15/20 02:05 Hydralazine 20 Mg/Ml Vial SLOW IVP 10 mg Q4H PRN Administration SBP Greater Than 180 Midazolam HCl 100 mls @ 0 mls/hr 12/17/20 08:45 12/21/20 21:58 Versed IVPB 100 mls INF GLO Administration Protocol Titrate Meropenem 1 gm/ Device 50 mls @ 100 mls/hr 12/17/20 09:00 12/22/20 00:06 IVPB 50 mls 0100,0900,1700 GLO Administration Lactated Ringer's 1,000 mls @ 70 mls/hr 12/19/20 10:00 12/21/20 20:00 Lactated Ringer's IV 1,000 mls .[id number] GLO Administration Vancomycin HCl 1.5 gm/ Sodium 300 mls @ 200 mls/hr 12/21/20 22:00 12/21/20 22:05 Chloride IVPB 300 mls 1000,2200 GLO Administration Insulin Human Lispro 0 units 12/19/20 07:52 12/20/20 01:09 Humalog 300 Units/3 Ml Vial SC 2 unit .MODERATE SLIDING SC PRN Administration Moderate Correctional Scale Metoclopramide HCl 10 mg 12/19/20 14:00 12/22/20 05:25 Metoclopramide Hcl 10 Mg/2 Ml Vial IVP 10 mg Q8HR GLO Administration Pantoprazole Sodium 40 mg 12/15/20 09:00 12/21/20 21:42 Pantoprazole 40 Mg Granules Packet PER TUBE 40 mg BID GLO Administration Sodium Chloride 10 ml 12/11/20 21:00 12/21/20 21:43 Flush - Normal Saline 10 Ml Syringe IVF 10 ml Q12HR GLO Administration Sodium Chloride 10 ml 12/11/20 13:45 12/17/20 09:53 Flush - Normal Saline 10 Ml Syringe IVF 10 ml PRN PRN Administration Saline Flush Vecuronium Tensed 10 mg 12/09/20 20:15 12/19/20 09:30 Vecuronium 10 Mg Vial IV 10 mg Q1H PRN Administration Agitation Zinc Sulfate 220 mg 12/15/20 09:00 12/21/20 09:13 Zinc Sulfate 220 Mg Cap PER TUBE 220 mg DAILY GLO Administration Hospitalist Exam Vitals: Vital Signs (12 hours) Pulse Resp BP Pulse Ox 02/19/21 07:57 117 H 39 H 88 L 12/22/20 07:37 114 H 147/87 H 12/22/20 02:42 101 H 12/21/20 22:30 102 H Weight Admit Weight 132 lb Weight 130 lb 1.164 oz Most Recent Monitor Data Heart Rate from ECG 109 NIBP 140/95 NIBP BP-Mean 110 Respiration from ECG 35 SpO2 90 General Appearance: NAD, awake alert Eye: PERRL, anicteric sclera Heart: RRR, no murmur, no gallops, no rubs Respiratory: no wheezes, no ronchi, rales (at the bases) Gastrointestinal: soft, non-tender, non-distended, normal bowel sounds, no palpable masses, no hepatomegaly Extremities: no cyanosis (2+ pulses in both lower extremities), 1+ LE edema Hosp A/P (1) Acute respiratory failure with hypoxia Code(s): J96.01 - ACUTE RESPIRATORY FAILURE WITH HYPOXIA Status: Acute (2) Pneumonia due to COVID-19 virus Code(s): U07.1 - COVID-19; J12.82 - PNEUMONIA DUE TO CORONAVIRUS DISEASE 2019 Status: Acute (3) SYLVAIN (acute kidney injury) Code(s): N17.9 - ACUTE KIDNEY FAILURE, UNSPECIFIED Status: Acute (4) Hypokalemia Code(s): E87.6 - HYPOKALEMIA Status: Acute - Plan * Acute respiratory failure with hypoxemia- Continue Decadron and Colchicine * She continues to require maximal ventilator support * Acute blood loss anemia- she had a drop in her H&H- likely from the oozing of blood through the ET tube- Heparin has been discontinued, and will transfuse as needed * Acute kidney disease- - creatinine is stable, and urine out put has been adequate * Hyperglycemia- blood glucose is stable * Her blood pressure has been adequate * Hypokalemia- stable * Continue Reglan with tube feeds * Prognosis is guarded. Her code status has beeen changed back to FULL CODE, as the patient's just left the hospital, and has not been informed of her worsening condition.
[2020-12-22] MEDS: Colchicine 0.6 MG TAB PO SCH (10:00)
[2020-12-22] MEDS: Enoxaparin Sodium 60 MG/0.6 ML SYRINGE SC SCH (10:00)
[2020-12-22] MEDS: Lactated Ringer's 1,000 ML IV SCH (11:11)
--- NOTE | 2020-12-22 11:30 | PRG ---
DATE OF SERVICE: 12/22/2020 SUBJECTIVE: Ms. Lowry continues to deteriorate. OBJECTIVE: VITAL SIGNS: Heart rate is 120, blood pressure 144/95, respiratory rates in the 30s, oximetry is 88% on 100% oxygen. LUNGS: Unchanged. ABDOMEN: Unchanged. LABORATORY DATA: White count 15.5, hemoglobin has fallen to 7.6, platelets 284. Sodium 141, potassium 3.6, chloride 111, bicarb 22, BUN 35, and creatinine 0.49. Protonix will be switched to IV. IMPRESSION: COVID pneumonia, not expected to survive. Family was again notified today. Job ID: [id number]
--- NOTE | 2020-12-22 12:18 | PDOC.FMACP ---
Advance Care Planning - Problem (1) Palliative care encounter Status: Acute Code(s): Z51.5 - ENCOUNTER FOR PALLIATIVE CARE (2) SYLVAIN (acute kidney injury) Status: Acute Code(s): N17.9 - ACUTE KIDNEY FAILURE, UNSPECIFIED (3) Acute respiratory failure with hypoxia Status: Acute Code(s): J96.01 - ACUTE RESPIRATORY FAILURE WITH HYPOXIA (4) Hypokalemia Status: Acute Code(s): E87.6 - HYPOKALEMIA (5) NSTEMI (non-ST elevated myocardial infarction) Status: Acute Code(s): I21.4 - NON-ST ELEVATION (NSTEMI) MYOCARDIAL INFARCTION (6) Pneumonia due to COVID-19 virus Status: Acute Code(s): U07.1 - COVID-19; J12.82 - PNEUMONIA DUE TO CORONAVIRUS DISEASE 2019 - Note Participants: family, surrogate decision-maker, palliative care Summary: Palliative care revisited Advanced Care Planning with patient family. Her spouse in in CCU in another facility and unable to participate in the discusion. Discussed with pateint Son swati and his cousin Vika, sister present as well. The diagnosis, prognosis and goals of care were discussed. Appropriate forms and documentation to accomplish the goals of care were discussed. All questions were answered. Family understanding of poor prognosis. Transition to DNAR Elected compassionate extubation with hospice to promote comfort at end of life. Family to bedside with appropriate precautions for 5 minutes. Will return once hospice in wrapped in and be with patient at end of life. CM notified, [facility] to evaluate for GIP Dr Sandy aware, spoke with family. Dr Ford also made aware. House Sup and CCU Charge Joan chadwick of plan. Time Spent (mins): 60
[2020-12-22] MEDS ORDERED: Morphine 4 MG/ML VIAL SLOW IVP PRN (12:19)
[2020-12-22] MEDS ORDERED: Lorazepam 2 MG/ML VIAL SLOW IVP PRN (12:20)
[2020-12-22 14:44] VITALS: BP 147/87
[2020-12-22] MEDS ORDERED: Morphine 10 MG/ML VIAL SLOW IVP SCH (15:15)
[2020-12-22] MEDS ORDERED: Lorazepam 2 MG/ML VIAL SLOW IVP SCH (15:15)
--- NOTE | 2020-12-22 18:46 | DIS ---
DATE OF ADMISSION: 12/09/2020 DATE OF DISCHARGE: 12/22/2020 DATE OF : 12/22/2020. DIAGNOSES: Include; 1. Acute respiratory failure secondary to COVID-19 pneumonia. 2. Hypertension. CODE STATUS: DNAR. ALLERGIES: NO KNOWN DRUG ALLERGIES. IMAGING DONE DURING THE HOSPITAL STAY: The patient had a CT angiogram of the chest, which was negative for pulmonary embolism. There was evidence of bilateral ground glass opacities consistent with COVID pneumonia. There was also evidence of pneumomediastinum and pneumopericardium. HOSPITAL COURSE: Ms. Lowry was a 65-year-old female who was admitted to the hospital after noticing worsening shortness of breath. Prior to that, she had been having body aches and back pain. She was found to have COVID pneumonia. Initially, her oxygen saturations were in the 70s and 80s and she was placed on a non-rebreather in the emergency room. She was admitted to the hospital and shortly after admission, she required intubation. She was seen by the Pulmonary and Critical Care Medicine specialist. Despite maximal treatment, IV steroids, Decadron, and convalescent plasma, the patient never improved. Different modes of ventilation were tried, prone positioning was also tried. However, despite all of these efforts, the patient's condition got worse. She was having high oxygen requirements even on maximal ventilatory support. The family was notified of her worsening condition, and they decided to compassionately extubate the patient and she shortly thereafter on 12/22/2020. Job ID: [id number]
[2020-12-22] MEDS ORDERED: Pantoprazole 40 MG VIAL IVP SCH (21:00)
--- NOTE | 2020-12-23 17:29 | EKG ---
Test Reason : Blood Pressure : / mmHG Vent. Rate : 072 BPM Atrial Rate : 072 BPM P-R Int : 098 ms QRS Dur : 080 ms QT Int : 412 ms P-R-T Axes : -23 047 121 degrees QTc Int : 451 ms Sinus rhythm with short NH Abnormal ECG Confirmed by SONNY YOO, SARAI ([id number]), sports editor ASHVIN NELSON ([id number]) on 12/23/2020 5:28:41 PM Referred By: Confirmed By:SARAI DENNIS MD
== END 2020-12-22 15:48 | disposition hospice, inpatient (51) | DRG 207 ==
LOC: EDBD 09:16 → ERS 09:16 → ERHOLD 11:00 → CCU 19:56
PROVIDERS: ADMIT Internal Medicine; ATTEND Internal Medicine
PROC: 5A1955Z Respiratory Ventilation, Greater than 96 Consecutive Hours (ICD-10-PCS; principal; 2020-12-09)
PROC: 0BH17EZ Insertion of Endotracheal Airway into Trachea, Via Natural or Artificial Opening (ICD-10-PCS; 2020-12-09)
PROC: XW13325 Transfusion of Convalescent Plasma (Nonautologous) into Peripheral Vein, Percutaneous Approach, New Technology Group 5 (ICD-10-PCS; 2020-12-15)
DX: U07.1 COVID-19 (principal); J12.82 Pneumonia due to coronavirus disease 2019; J96.01 Acute respiratory failure with hypoxia; I21.4 Non-ST elevation (NSTEMI) myocardial infarction; Z66 Do not resuscitate; Z51.5 Encounter for palliative care; A41.9 Sepsis, unspecified organism; N17.9 Acute kidney failure, unspecified; E87.1 Hypo-osmolality and hyponatremia; D62 Acute posthemorrhagic anemia; I31.9 Disease of pericardium, unspecified; I10 Essential (primary) hypertension; E87.6 Hypokalemia; J98.2 Interstitial emphysema; R73.9 Hyperglycemia, unspecified
CPT/HCPCS: 0240U; 31500; 36415; 36416; 36430; 36556; 36600; 51701; 70450; 71045; 71275; 80048; 80053; 80202; 80306; 80307; 81003; 82140; 82550; 82553; 82728; 82805; 83605; 83690; 83735; 83880; 84443; 84484; 85007; 85025; 85027; 85379; 86140; 86850; 86900; 86901; 87040; 87070; 87077; 87086; 87186; 87205; 93005; 94002; 94003; 94640; 94760; 96361; 96365; 96372; 96374; 96375; 99292; C9113; J0360; J0456; J0692; J0696; J1100; J1650; J1940; J2060; J2185; J2270; J2704; J2765; J3370; J3475; J3480; J3490; J7030; J7050; J7626; P9017; P9047; Q9967

== ENCOUNTER 2020-12-22 16:02 | Inpatient (IN) | payer OTHER ==
[2020-12-22 16:05] VITALS: BMI 31.4
[2020-12-22] MEDS ORDERED: Bisacodyl 10 MG SUPP PR PRN (16:26)
[2020-12-22] MEDS ORDERED: Morphine 10 MG/ML VIAL SLOW IVP SCH (16:30)
[2020-12-22] MEDS ORDERED: Ondansetron PF 4 MG/2 ML Vial IVP PRN (16:30)
[2020-12-22] MEDS ORDERED: diphenhydrAMINE 50 MG/ML VIAL IVP PRN (16:30)
[2020-12-22] MEDS ORDERED: Lorazepam 2 MG/ML VIAL SLOW IVP SCH ×2 (16:30→18:00)
[2020-12-22] MEDS ORDERED: Scopolamine 1.5 mg/72 hour Patch TOP PRN (16:30)
[2020-12-22] MEDS ORDERED: Acetaminophen 650 MG Suppository PR PRN (16:30)
[2020-12-22] MEDS ORDERED: Morphine 4 MG/ML VIAL SLOW IVP SCH (16:30)
== END 2020-12-22 16:40 | disposition expired | DRG 951 ==
LOC: CCU 16:02
PROVIDERS: ADMIT Family Medicine; ATTEND Family Medicine
DX: Z51.5 Encounter for palliative care (principal); U07.1 COVID-19; J12.82 Pneumonia due to coronavirus disease 2019; J96.01 Acute respiratory failure with hypoxia; A41.89 Other specified sepsis; I21.A1 Myocardial infarction type 2; N17.9 Acute kidney failure, unspecified; E87.1 Hypo-osmolality and hyponatremia; E87.6 Hypokalemia